=== PATIENT | female | born 1935 | race Caucasian/White ===

== ENCOUNTER 2016-04-24 09:50 | Day surgery (SDC) | payer MEDICARE, OTHER ==
[2016-04-24] MEDS ORDERED: KETOROLAC 0.45% OPHTH DROPS OPTH ONE (10:25)
[2016-04-24] MEDS ORDERED: TROPICAMIDE 1% OPHTH 2 ML DROPS OPTH ONE (10:25)
[2016-04-24] MEDS ORDERED: CYCLOPENTOLATE 1% OPHTH DROPS 2 ML OPTH ONE (10:25)
[2016-04-24] MEDS ORDERED: LACTATED RINGERS 500 ML IV ONE (10:32)
[2016-04-24] MEDS ORDERED: MIDAZOLAM 2 MG/2 ML VIAL IVP ONE (11:44)
[2016-04-24] MEDS ORDERED: BRIMONIDINE 0.2% OPHTH DROPS 5 ML OPTH ONE (11:48)
[2016-04-24] MEDS ORDERED: EPINEPHrine 1 MG/ML AMP IO ONE (11:48)
[2016-04-24] MEDS ORDERED: PROPARACAINE 0.5% OPHTH DROPS 15 ML OPTH ONE (11:48)
[2016-04-24] MEDS ORDERED: TIMOLOL 0.5% OPHTH DROPS OPTH ONE (11:49)
[2016-04-24] MEDS ORDERED: BSS/LIDOCAINE/EPINEPHRINE 1 ML SYRINGE IO ONE (11:49)
[2016-04-24] MEDS ORDERED: levoFLOXacin 0.5% OPHTH DROPS 5 ML OPTH ONE (11:49)
[2016-04-24] MEDS ORDERED: CHONDR SULF/HYALURONATE SYRINGE IO ONE (11:49)
[2016-04-24] MEDS ORDERED: TETRACAINE OPHTH DROPS 2 ML OPTH ONE (11:49)
== END 2016-04-24 09:51 | disposition home or self-care (01) ==
PROC: 08RJ3JZ Replacement of Right Lens with Synthetic Substitute, Percutaneous Approach (ICD-10-PCS; principal; 2016-04-24 11:20)
DX: H25.11 Age-related nuclear cataract, right eye (principal)
CPT/HCPCS: 66982; V2632

== ENCOUNTER 2018-11-13 15:30 | Outpatient (CLI) | payer MEDICARE, OTHER | END 2018-11-13 15:31 | disposition critical access hospital (66) | LOC: EMS 15:30 | PROVIDERS: ATTEND Surgery | DX: M25.551 Pain in right hip (principal); S50.311A Abrasion of right elbow, initial encounter; W01.0XXA Fall on same level from slipping, tripping and stumbling without subsequent striking against object, initial encounter; Y92.009 Unspecified place in unspecified non-institutional (private) residence as the place of occurrence of the external cause | CPT/HCPCS: A0425; A0429 ==

== ENCOUNTER 2018-11-13 16:11 | Inpatient (IN) | payer MEDICARE, OTHER ==
--- NOTE | 2018-11-13 17:25 | XRAY Report ---
Reason: hip fracture suspected Procedure Date: 11/13/2018 Accession Number: [id number] / [id number] Procedure: XR - Hip w/Pelvis 2-3V RT CPT Code: FULL RESULT: EXAM: RIGHT HIP RADIOGRAPHY EXAM DATE: 11/13/2018 05:01 PM. CLINICAL HISTORY: Hip fracture suspected. Right hip pain after a ground-level fall today. COMPARISON: None. TECHNIQUE: 2 views. FINDINGS: Bones: Acute comminuted right proximal femur intertrochanteric fracture with impaction, displacement and varus angulation. Joints: No dislocation. Mild pubic symphysis degenerative change. Minimal left hip degenerative joint disease. Soft Tissues: Bilateral buttock calcified granuloma suspected. IMPRESSION: Acute comminuted right proximal femur intertrochanteric fracture with impaction, displacement and varus angulation. See above. RADIA
--- NOTE | 2018-11-13 17:31 | ED Physician Documentation ---
PD HPI LOWER EXT INJURY - Stated complaint Stated Complaint: GLF - Chief complaint Chief Complaint: Ext Problem - History obtained from History obtained from: Patient - History of Present Illness PD HPI LOW EXT INJURY LOCATION: Right, Hip Type of injury: Fall, Other (from standing, ground level. Twisted around and misstepped) Where injury occurred: Other (yard at home) Timing - onset: Today (just prior to arrival) Timing - duration: Hours (1) Timing - details: Abrupt onset Pain level max: 8 Pain level now: 8 Severity Comments: 11/28 Improved by: Rest, Immobilization Worsened by: Moving Associated symptoms: No: Weakness, Numbness, Tingling, Swelling, Discolored Contributing factors: No: Anticoagulated, Prior ortho surgery, Prosthetic joint, Work related Similar symptoms before: Has not had sx before Recently seen: Not recently seen - Treatment prior to arrival Treatment prior to arrival: none, pt refused medication Review of Systems Ten Systems: 10 systems reviewed and negative Constitutional: denies: Fever Eyes: reports: Reviewed and negative Cardiac: reports: Reviewed and negative Respiratory: reports: Reviewed and negative GI: reports: Reviewed and negative Musculoskeletal: reports: Extremity pain, Joint pain. denies: Extremity swelling, Joint swelling Neurologic: denies: Focal weakness, Numbness, Syncope, Headache, Head injury, LOC PD PAST MEDICAL HISTORY - Past Medical History Past Medical History: No - Present Medications Home Medications: Ambulatory Orders Medication Instructions Recorded Confirmed No Known Home Medications 04/23/16 11/13/18 - Allergies Allergies/Adverse Reactions: Allergies Allergy/AdvReac Type Severity Reaction Status Date / Time Penicillins Allergy Hives Verified 11/13/18 16:22 PD ED PE NORMAL - Vitals Vital signs reviewed: Yes - General General: Alert and oriented X 3, No acute distress, Well developed/nourished - HEENT HEENT: Atraumatic - Neck Neck: Supple, no meningeal sign, No JVD - Cardiac Cardiac: RRR, No murmur, No gallop, No rub - Respiratory Respiratory: No respiratory distress, Clear bilaterally - Abdomen Abdomen: Soft, Non tender, Non distended - Female Female : Deferred - Rectal Rectal: Deferred - Derm Derm: Normal color, Warm and dry, No rash - Neuro Neuro: Alert and oriented X 3 Eye Opening: Spontaneous Motor: Obeys Commands Verbal: Oriented GCS Score: 15 - Psych Psych: Normal mood, Normal affect PD ED PE EXPANDED - Extremities Extremities: Deformity, Tenderness, Limited ROM, Right hip, Motor intact, Sensory intact, Vascular intact, Other (externally rotated, shortened, right lo wer extremity, 2+ DP and PT pulses ) Results - Vitals Vitals: Vital Signs - 24 hr 11/13/18 16:20 Temperature 36.8 C Heart Rate 66 Respiratory 18 Rate Blood Pressure 120/75 O2 Saturation 96 Oxygen O2 Source Room air - EKG (time done) 17:47 Rate: Rate (enter#) Rhythm: NSR Todd: Normal Intervals: LBBB QRS: Normal Ischemia: Normal ST segments Computer interpretation: Agree with computer - Rads (name of study) xray right hip Radiology: Final report received, EMP read contemporaneously (right hip intertrochanteric fracture, comminuted and displaced), See rad report PD MEDICAL DECISION MAKING - ED course Complexity details: reviewed results, re-evaluated patient, considered differe ntial, d/w patient, d/w family, d/w database reporting consultant ED course: ddx- contusion, fracture, hip strain, dislocation, pelvic fracture 83 y/o F with GLF mechanical, nonsyncopal with no head injury. With isolated R hip pain. OBvious comminuted and displaced fx on xray confirmed. Neurovascularly intact. Last meal at 12:00 today. Ortho aware and will likely take to OR tonight. Pt is NPO. Hospitalist agreed to admission. Departure - Departure Disposition: [facility] DC/Xfer Clinical Impression: Intertrochanteric fracture of right hip Qualifiers: Encounter type: initial encounter Fracture type: closed Fracture alignment: displaced Qualified Code(s): S72.141A - Displaced intertrochanteric fracture of right femur, initial encounter for closed fracture
[2018-11-13] MEDS ORDERED: oxyCODONE 5 MG TABLET PO PRN (17:52)
[2018-11-13] MEDS ORDERED: ONDANSETRON ODT 4 MG TABLET TL PRN (17:52)
[2018-11-13] MEDS ORDERED: MORPHINE 2 MG/ML CARPUJECT IVP PRN (17:52)
[2018-11-13] MEDS ORDERED: ONDANSETRON 4 MG/2 ML VIAL IVP PRN (17:52)
[2018-11-13] MEDS ORDERED: SODIUM CHLORIDE FLUSH 0.9% 10 ML SYRINGE IVP PRN (17:52)
[2018-11-13 17:57] LABS: BASOPHILS % (AUTO) 0.3 %; EOSINOPHILS % (AUTO) 0.3 %; HGB - HEMOGLOBIN 12.8 g/dL (12.0-16.0); LYMPHOCYTES # (AUTO) 0.8 10^3/uL (1.5-3.5); LYMPHOCYTES % (AUTO) 6.7 %; MEAN CORPUSCULAR HEMOGLOBIN 32.2 pg (27.0-31.0); MEAN CORPUSCULAR HGB CONC 32.7 g/dL (32.0-36.0); MEAN CORPUSCULAR VOLUME 98.7 fL (81.0-99.0); MEAN PLATELET VOLUME 9.8 fL (7.9-10.8); MONOCYTES # (AUTO) 0.7 10^3/uL (0.0-1.0); MONOCYTES % (AUTO) 5.7 %; NEUTROPHILS # (AUTO) 10.3 10^3/uL (1.5-6.6); NEUTROPHILS % (AUTO) 86.7 %; PLT - PLATELET COUNT 193 10^3/uL (130-450); RED BLOOD COUNT 3.97 10^6/uL (4.20-5.40); RED CELL DISTRIBUTION WIDTH 13.1 % (12.0-15.0); WHITE BLOOD COUNT 11.8 x10^3/uL (4.8-10.8)
[2018-11-13 18:11] LABS: CALCIUM 9.1 mg/dL (8.5-10.3); CREATININE 0.9 mg/dL (0.4-1.0)
--- NOTE | 2018-11-13 18:21 | HISTORY & PHYSICAL EXAMINATION ---
Chief Complaint - Chief Complaint Chief Complaint: fall History of Present Illness - History of Present Illness HPI Comment/Other: is a 83-yrs-old female without significant medical history, who present ER complain of right hip pain. Pt report, when she turned on the right side while she was doing garden work, she had simply fell. She denies loss of consciousness, pre-syncope or syncope, palpitation, chest pain, shortness of breath. she denies other injury. Pt denies medical history, and denies any home medications she takes now. Xray of hip reveals acute comminuted right proximal femur intertrochanteric fracture. EKG reveals left bundle branch block. Pt is hemodynamic stable. Orthopedics was consulted and called, and planned to have surgery hip repair tonight. History - Family & Social History Family History Comment/Other: pt report she is living at [facility] by her own and independently. she had one son and one daughter. Her Daughter is her DPOA Social History Notes: pt denies hx of cigarett smoker, alcohol and drug abuse Meds/Allgy - Home Medications Home Medications: Ambulatory Orders Medication Instructions Recorded Confirmed No Known Home Medications 04/23/16 11/13/18 - Allergies Allergies/Adverse Reactions: Allergies Allergy/AdvReac Type Severity Reaction Status Date / Time Penicillins Allergy Hives Verified 11/13/18 16:22 Review of Systems - Constitutional Constitutional: denies: Fatigue, Fever, Chills, Malaise, Weakness, Poor appetite, Diaphoresis, Night sweats - Eyes Eyes: denies: Pain, Irritation, Amaurosis, Blurred vision, Spots in vision, Field loss, Vision loss, Dipolpia - Ears, Nose & Throat Ears, Nose & Throat: denies: Ear pain, Hearing loss, Hearing aids, Tinnitus, Vertigo, Nasal pain, Nasal discharge, Nosebleeds, Nasal obstruction, Nasal congestion, Postnasal drainage, Dentures, Sore throat, Hoarseness - Cardiovascular Cariovascular: denies: Irregular heart rate, Palpitations, Chest pain, Edema, Lightheadedness, Syncope, Exertional dyspnea, Decr. exercise tolerance - Respiratory Respiratory: denies: Cough, Sputum production, Wheezing, Snoring, Hemoptysis, Orthopnea, SOB at rest, SOB with exertion - Gastrointestinal Gastrointestinal: denies: Abdominal pain, Abdominal distention, Constipation, D iarrhea, Change in bowel habits, Rectal bleeding, Black stools, Bloody stools, Nausea, Vomiting, Bile emesis, Dontrell blood emesis, Coffee grounds emesis - Genitourinary Genitourinary: denies: Dysuria, Frequency, Urgency, Hematuria, Incontinence, Flank pain, Nocturia, Urethral discharge - Musculoskeletal Musculoskeletal: reports: Limited range of motion, Joint pain. denies: Muscle pain, Back pain, Muscle aches, Stiffness, Muscle weakness, Gout, Joint swelling - Integumentary Integumentary: denies: Rash, Pruritis, Lesions, Dryness, Lumps, Acne, Pigment changes, Nail changes - Neurological Neurological: denies: General weakness, Focal weakness, Headache, Dizziness, Numbness, Memory problems, Pre-existing deficit, Abnormal gait, Seizures, Incoordination, Slurred speech - Psychiatric Psychiatric: denies: Depression, Anxiety, Suicidal, Delusions, Hallucinations, Homicidal - Endocrine Endocrine: denies: Polyuria, Polydypsia, Polyphagia, Intolerance to cold - Hematologic/Lymphatic Hematologic/Lymphatic: denies: Anemia, Bruising, Petechiae, Blood clots, Lymphadenopathy, Bleeding tendencies Exam - Vital Signs Reviewed Vital Signs: Yes Vital Signs: Vital Signs x48h Temp Pulse Resp BP Pulse Ox 11/13/18 16:20 36.8 C 66 18 120/75 96 - Physical Exam General Appearance: positive: No acute distress, Alert. negative: Lethargic Eyes Bilateral: positive: Normal inspection, PERRL. negative: No lid inflammation, Conjunctivae nml ENT: positive: ENT inspection nml, Pharynx nml, No signs of dehydration. negative: Purulent nasal drainage, Pharyngeal erythema, Oral lesions Neck: positive: Nml inspection, Thyroid nml, No JVD, Trachea midline. negative: Thyromegaly, Lymphadenopathy (R), Lymphadenopathy (L), Stiff neck, Swelling/bruising, Tracheal deviation Respiratory: positive: Chest non-tender, No respiratory distress, Breath sounds nml. negative: Wheezes, Rales, Rhonchi Cardiovascular: positive: Regular rate & rhythm, No murmur, No gallop. negative: Irregularly irregular, Extrasystoles, Tachycardia, Bradycardia, JVD present, Systolic murmur, Diastolic murmur Peripheral Pulses: positive: 2+ Abdomen: positive: Non-tender, No organomegaly, Nml bowel sounds, No distention. negative: Tenderness, Guarding, Rebound Back: positive: Nml inspection. negative: CVA tenderness (R), CVA tenderness (L) Skin: positive: Color nml, No rash, Warm, Dry. negative: Cyanosis, Diaphoresis, Pallor Extremities: positive: Non-tender, Nml appearance. negative: Full ROM, Calf tenderness, Joint swelling, Basil's sign/cords Neurologic/Psychiatric: positive: Sensation nml, Mood/affect nml. negative: Oriented x3, Weakness, Sensory loss, Facial droop, Slurred/abnml speech, Depre ssed mood/affect Sepsis Event Note (H) - Evaluation Current Stage of Sepsis: Ruled out Conclusion/Plan - Problem List (1) Intertrochanteric fracture of right hip Conclusion/Plan: pt had simple fall, she report pain when she move her right leg. Xray reveals right hip fracture. consult with orthopedics, will followup NPO with IVF of NS pain control Pt has no medical history. Revised Cardiac Risk Index for Pre-Operative Risk indicate 3.9%, low risk. Qualifiers: Encounter type: initial encounter Fracture type: closed Fracture alignment: displaced Qualified Code(s): S72.141A - Displaced intertrochanteric fracture of right femur, initial encounter for closed fracture (2) Fall Conclusion/Plan: pt had a simple fall per pt report. pt denies loss of consciousness, denies pre-syncope/syncope. pt has no cardiac history. fall precaution followup surgery, PT/OT evaluation and treatment for pt (3) Left bundle branch block (LBBB) Conclusion/Plan: pt's EKG reveals LBBB. pt denies palpitation, pre-syncope/syncope, chest pain. pt has no cardiac history. we will check ECHO, followup (4) Do not intubate, cardiopulmonary resuscitation (CPR)-only code status Conclusion/Plan: pt request DNR - Lab Results Fish Bones: 11/13/18 17:32 11/13/18 17:32 Core Measures - Anticipated LOS I expect patient to be DC'd or transferred within 96 hours.: Yes - DVT/VTE - Prophylaxis VTE/DVT Device ordered at admit?: Yes VTE/DVT Prophylaxis med ordered at admit?: Yes
[2018-11-13] MEDS: SODIUM CHLORIDE FLUSH 0.9% 10 ML SYRINGE IVP SCH (19:00)
[2018-11-13] MEDS: SODIUM CHLORIDE 0.9% 1,000 ML IV SCH (19:00)
--- NOTE | 2018-11-13 19:51 | CONSULTATION NOTE ---
Referring Provider Name of Referring Provider:: Dr. Warren Of emergency medicine department Consult Date: 11/13/18 Chief Complaint - Chief Complaint Chief Complaint: Asked to evaluate patient for right hip fracture History of Present Illness - History Obtained From Records Reviewed: Patient and medical record History obtained from: Patient and emergency medicine physician - History of Present Illness HPI Comment/Other: Hailey is an 83-year-old female who is generally active in her usual state of health until in her garden today when she simply fell. She denies loss of consciousness denies any neurovascular or cardiovascular symptoms preceding this. She denies other traumatic complaints at this time. She was unable to ambulate and was brought to the emergency room found to have a right hip fracture. Orthopedics consultation was sought. Patient denies significant medical history and denies taking any medication a regular basis History - Past Medical History Cardiovascular: reports: None Respiratory: reports: None Neuro: reports: None Endocrine/Autoimmune: reports: None GI: reports: None : reports: None Psych: reports: None Musculoskeletal: reports: None Derm: reports: None - Past Surgical History /[employer]: reports: Hysterectomy HEENT: reports: Cataracts, Tonsil/Adenoidectomy Meds/Allgy - Home Medications Home Medications: Ambulatory Orders Medication Instructions Recorded Confirmed No Known Home Medications 04/23/16 11/13/18 - Allergies Allergies/Adverse Reactions: Allergies Allergy/AdvReac Type Severity Reaction Status Date / Time Penicillins Allergy Hives Verified 11/13/18 16:22 Exam - Vital Signs Vital Signs: Vital Signs x48h Temp Pulse Pulse Resp BP BP Pulse Ox 11/13/18 18:31 36.7 C 74 18 116/99 H 98 11/13/18 16:20 36.8 C 66 18 120/75 96 - Physical Exam Comments/Other: Patient well-developed 83-year-old female no acute distress she is cooperative with the exam. Head and neck normocephalic atraumatic. Patient's right lower extremity is shortened and externally rotated. She is able to initiate flexion extension of toes and ankle. Foot ankle leg knee unremarkable nontender. Thigh calf soft nontender. Skin overlying the hip girdle is intact. She is not aggressively moved though notes that she has thigh and groin pain with any hip rotation. Conclusion/Plan - Diagnosis Diagnosis: Right comminuted unstable intertrochanteric/basicervical femur fracture - Plan Plan: Hailey is an 83-year-old female with a right unstable intertrochanteric/basic ervical femur fracture. Discussed the injury with her as well as her daughter Kathrin Mosley on the telephone. We talked about natural history and relevant literature and the potential short and long-term problems with and without surgery. With the patient we talked about potential operative risks including but not limited to infection wound problems nerve or blood vessel injury numbness tingling weakness pain stiffness decreased range of motion decreased strength decreased function worsening of the patient's condition iatrogenic injury blood loss blood clot blood clot embolus positioning complications anesthetic complications including but not limited to major cardiovascular neurovascular complications even . Patient verbalized their understanding above she verbalized her wish to proceed with operative treatment informed consent was given. Patient patient's daughter given preoperative postoperative instructions and expectations. We will await appropriate medical risk stratification and optimization and then proceed with operative intervention. Procedure is right femur open reduction internal fixation/cephalo-medullary nail placement - Lab Results Fish Bones: 11/13/18 17:32 11/13/18 17:32
[2018-11-13 22:39] LABS: TROPONIN I < 0.04 ng/mL (<0.49)
--- NOTE | 2018-11-13 22:52 | XRAY Report ---
Reason: Preop for tomorrow Procedure Date: 11/13/2018 Accession Number: [id number] / [id number] Procedure: XR - Chest 1 View X-Ray CPT Code: 15598 FULL RESULT: EXAM: CHEST RADIOGRAPHY EXAM DATE: 11/13/2018 09:15 PM. CLINICAL HISTORY: Preoperative for hip fracture surgery. COMPARISON: None. TECHNIQUE: 1 view. FINDINGS: Lungs/Pleura: No significant consolidation, effusion, or definite pneumothorax. Mediastinum: Cardiac silhouette is within normal limits when accounting for lung volumes and technique. Other: There is moderate bilateral shoulder degenerative change. IMPRESSION: No acute cardiopulmonary abnormality demonstrated. RADIA
[2018-11-14] MEDS: SODIUM CHLORIDE FLUSH 0.9% 10 ML SYRINGE IVP SCH ×3 (00:35→16:40)
[2018-11-14] MEDS: SODIUM CHLORIDE 0.9% 1,000 ML IV SCH (04:25)
[2018-11-14 06:09] LABS: BASOPHILS % (AUTO) 0.1 %; HGB - HEMOGLOBIN 9.7 g/dL (12.0-16.0); LYMPHOCYTES # (AUTO) 1.2 10^3/uL (1.5-3.5); LYMPHOCYTES % (AUTO) 16.8 %; MEAN CORPUSCULAR HEMOGLOBIN 31.6 pg (27.0-31.0); MEAN CORPUSCULAR HGB CONC 32.2 g/dL (32.0-36.0); MEAN PLATELET VOLUME 9.9 fL (7.9-10.8); MONOCYTES # (AUTO) 0.8 10^3/uL (0.0-1.0); NEUTROPHILS # (AUTO) 5.1 10^3/uL (1.5-6.6); PLT - PLATELET COUNT 172 10^3/uL (130-450); RED BLOOD COUNT 3.07 10^6/uL (4.20-5.40); RED CELL DISTRIBUTION WIDTH 13.3 % (12.0-15.0); WHITE BLOOD COUNT 7.1 x10^3/uL (4.8-10.8)
[2018-11-14 06:20] LABS: ALBUMIN 2.9 g/dL (3.2-5.5); ALBUMIN/GLOBULIN RATIO 1.1 (1.0-2.2); BILIRUBIN,TOTAL 1.1 mg/dL (0.2-1.0); CALCIUM 7.9 mg/dL (8.5-10.3); CREATININE 0.8 mg/dL (0.4-1.0); TOTAL PROTEIN 5.6 g/dL (6.7-8.2)
--- NOTE | 2018-11-14 06:51 | ANESTHESIA ---
Pre-Anesthesia VS, & Labs - Diagnosis Diagnosis Right comminuted unstable intertrochanteric/ basicervical femur fracture - Procedure Right intertrochanter hip nailing Vital Signs: Temp Pulse Resp BP Pulse Ox 37.1 C 67 18 111/58 L 95 11/14/18 04:47 11/14/18 04:47 11/14/18 04:47 11/14/18 00:00 11/14/18 04:47 Height 5 ft Weight (kg) 44 kg Body Mass Index 18.9 - NPO >8 hours - Is Patient ?: No, Not Applicable - Lab Results Current Lab Results: Laboratory Tests 11/14/18 05:39: Sodium 143, Potassium 3.8, Chloride 112 H, Carbon Dioxide 23, Anion Gap 8.0, BUN 16, Creatinine 0.8, Estimated GFR (MDRD) 68 L, Glucose 115 H, Calcium 7.9 L, Magnesium 2.0, Total Bilirubin 1.1 H, AST 22, ALT 14, Alkaline Phosphatase 38 L, Total Protein 5.6 L, Albumin 2.9 L, Globulin 2.7, Albumin/Globulin Ratio 1.1 11/14/18 05:39: WBC 7.1, RBC 3.07 L, Hgb 9.7 L, Hct 30.1 L, MCV 98.0, MCH 31.6 H , MCHC 32.2, RDW 13.3, Plt Count 172, MPV 9.9, Neut # (Auto) 5.1, Lymph # (Auto) 1.2 L, [place] # (Auto) 0.8, Eos # (Auto) 0.0, Baso # (Auto) 0.0, Absolute Nucleated RBC 0.00, Nucleated RBC % 0.0 11/13/18 22:16: Troponin I < 0.04, Troponin I High Sens 4.3 11/13/18 17:32: Sodium 141, Potassium 3.6, Chloride 105, Carbon Dioxide 25, Anion Gap 11.0, BUN 20, Creatinine 0.9, Estimated GFR (MDRD) 60 L, Glucose 125 H , Calcium 9.1 11/13/18 17:32: WBC 11.8 H, RBC 3.97 L, Hgb 12.8, Hct 39.2, MCV 98.7, MCH 32.2 H , MCHC 32.7, RDW 13.1, Plt Count 193, MPV 9.8, Neut # (Auto) 10.3 H, Lymph # (Auto) 0.8 L, [place] # (Auto) 0.7, Eos # (Auto) 0.0, Baso # (Auto) 0.0, Absolute Nucleated RBC 0.00, Nucleated RBC % 0.0 Lab results reviewed: Yes Fish Bones: 11/14/18 05:39 11/14/18 05:39 Home Medications and Allergies Active Medications Acetaminophen (Tylenol) 650 mg PO Q4HR PRN PRN Reason: Pain 1 to 4 Enoxaparin Sodium (Lovenox) 40 mg SUBQ DAILY [facility] Sodium Chloride (Normal Saline 0.9%) 1,000 mls @ 100 mls/hr IV .Q10H [facility] Last Admin: 11/14/18 04:25 Dose: 100 mls/hr Morphine Sulfate (Morphine (Carpuject)) 2 mg IVP Q2HR PRN PRN Reason: Pain 8 to 10 Ondansetron HCl (Zofran Inj) 4 mg IVP Q6HR PRN PRN Reason: Nausea / Vomiting Ondansetron HCl (Zofran Odt) 4 mg TL Q6HR PRN PRN Reason: Nausea / Vomiting Oxycodone HCl (Roxicodone) 5 mg PO Q4HR PRN PRN Reason: Pain 5 to 7 Polyethylene Glycol (Miralax) 17 gm PO DAILY [facility] Sodium Chloride (Normal Saline Flush 0.9%) 10 ml IVP PRN PRN PRN Reason: NEEDED PER PROVIDER ORDERS Sodium Chloride (Normal Saline Flush 0.9%) 10 ml IVP 0100,0900,1700 [facility] Last Admin: 11/14/18 00:35 Dose: Not Given No Known Home Medications 04/23/16 Allergies/Adverse Reactions: Allergies Allergy/AdvReac Type Severity Reaction Status Date / Time Penicillins Allergy Hives Verified 11/13/18 16:22 Anes History & Medical History - Anesthetic History Anesthesia Complications: reports: No previous complications Family history of Anesthesia Complications: Denies Family history of Malignant Hyperthermia: Denies - Medical History Cardiovascular: reports: None Pulmonary: reports: None Gastrointestinal: reports: None Urinary: reports: None Neuro: reports: None Musculoskeletal: reports: None Endocrine/Autoimmune: reports: None Blood Disorders: reports: None Skin: reports: None Smoking Status: Never smoker Psychosocial: reports: No issues indicated - Surgical History Eyes Ears Nose Throat (EENT): Cataracts, Tonsil/Adenoidectomy Gynecologic: Hysterectomy Exam General: Alert, Oriented x3, Cooperative Mouth Opening: Greater than 4 Fingerbreadths Neck Mobility: Normal Mallampati classification: II Thyromental Distance: 4-6 cm Respiratory: Lungs clear Cardiovascular: Regular rate Neurological: Normal speech Mental/Cognitive Status: Alert/Oriented X3 Cognitive Status: Within normal limits Plan Anesthesia Type: General Consent for Procedure(s) Verified and Reviewed: Yes Code Status: Attempt Resuscitation ASA classification: 1-Healthy patient Is this case an emergency?: Yes
[2018-11-14] MEDS: POLYETHYLENE GLYCOL 3350 17 GM PACKET PO SCH (08:04)
[2018-11-14] MEDS ORDERED: SODIUM CHLORIDE 0.9% 1,000 ML IV SCH (08:09)
--- NOTE | 2018-11-14 08:15 | PROVIDER PROGRESS NOTE ---
Objective - Vital Signs/Intake & Output Vital Signs: Vital Signs x48h Temp Pulse Pulse Resp BP Pulse Ox 11/14/18 07:31 37.2 C 76 16 114/60 96 11/14/18 04:47 37.1 C 67 18 95 Intake & Output: Intake & Output 11/11/18 11/12/18 11/13/18 11/14/18 23:59 23:59 23:59 23:59 Intake Total 0 941.667 Output Total 50 Balance 0 891.667 - Lab Results Fish Bones: 11/14/18 05:39 11/14/18 05:39 Other Labs: Lab Results x24hrs 11/14/18 11/14/18 11/13/18 Range/Units 05:39 05:39 22:16 WBC 7.1 (4.8-10.8) x10^3/uL RBC 3.07 L (4.20-5.40) 10^6/uL Hgb 9.7 L (12.0-16.0) g/dL Hct 30.1 L (37.0-47.0) % MCV 98.0 (81.0-99.0) fL MCH 31.6 H (27.0-31.0) pg MCHC 32.2 (32.0-36.0) g/dL RDW 13.3 (12.0-15.0) % Plt Count 172 (130-450) 10^3/uL MPV 9.9 (7.9-10.8) fL Neut # (Auto) 5.1 (1.5-6.6) 10^3/uL Lymph # (Auto) 1.2 L (1.5-3.5) 10^3/uL [place] # (Auto) 0.8 (0.0-1.0) 10^3/uL Eos # (Auto) 0.0 (0.0-0.7) 10^3/uL Baso # (Auto) 0.0 (0.0-0.1) 10^3/uL Absolute Nucleated RBC 0.00 x10^3/uL Nucleated RBC % 0.0 /100WBC Sodium 143 (135-145) mmol/L Potassium 3.8 (3.5-5.0) mmol/L Chloride 112 H (101-111) mmol/L Carbon Dioxide 23 (21-32) mmol/L Anion Gap 8.0 (6-13) BUN 16 (6-20) mg/dL Creatinine 0.8 (0.4-1.0) mg/dL Estimated GFR (MDRD) 68 L (>89) Glucose 115 H (70-100) mg/dL Calcium 7.9 L (8.5-10.3) mg/dL Magnesium 2.0 (1.7-2.8) mg/dL Total Bilirubin 1.1 H (0.2-1.0) mg/dL AST 22 (10-42) IU/L ALT 14 (10-60) IU/L Alkaline Phosphatase 38 L (42-121) IU/L Troponin I < 0.04 (<0.49) ng/mL Troponin I High Sens 4.3 (2.3-14.8) pg/mL Total Protein 5.6 L (6.7-8.2) g/dL Albumin 2.9 L (3.2-5.5) g/dL Globulin 2.7 (2.1-4.2) g/dL Albumin/Globulin Ratio 1.1 (1.0-2.2) 11/13/18 11/13/18 Range/Units 17:32 17:32 WBC 11.8 H (4.8-10.8) x10^3/uL RBC 3.97 L (4.20-5.40) 10^6/uL Hgb 12.8 (12.0-16.0) g/dL Hct 39.2 (37.0-47.0) % MCV 98.7 (81.0-99.0) fL MCH 32.2 H (27.0-31.0) pg MCHC 32.7 (32.0-36.0) g/dL RDW 13.1 (12.0-15.0) % Plt Count 193 (130-450) 10^3/uL MPV 9.8 (7.9-10.8) fL Neut # (Auto) 10.3 H (1.5-6.6) 10^3/uL Lymph # (Auto) 0.8 L (1.5-3.5) 10^3/uL [place] # (Auto) 0.7 (0.0-1.0) 10^3/uL Eos # (Auto) 0.0 (0.0-0.7) 10^3/uL Baso # (Auto) 0.0 (0.0-0.1) 10^3/uL Absolute Nucleated RBC 0.00 x10^3/uL Nucleated RBC % 0.0 /100WBC Sodium 141 (135-145) mmol/L Potassium 3.6 (3.5-5.0) mmol/L Chloride 105 (101-111) mmol/L Carbon Dioxide 25 (21-32) mmol/L Anion Gap 11.0 (6-13) BUN 20 (6-20) mg/dL Creatinine 0.9 (0.4-1.0) mg/dL Estimated GFR (MDRD) 60 L (>89) Glucose 125 H (70-100) mg/dL Calcium 9.1 (8.5-10.3) mg/dL Magnesium (1.7-2.8) mg/dL Total Bilirubin (0.2-1.0) mg/dL AST (10-42) IU/L ALT (10-60) IU/L Alkaline Phosphatase (42-121) IU/L Troponin I (<0.49) ng/mL Troponin I High Sens (2.3-14.8) pg/mL Total Protein (6.7-8.2) g/dL Albumin (3.2-5.5) g/dL Globulin (2.1-4.2) g/dL Albumin/Globulin Ratio (1.0-2.2) Sepsis Event Note (H) - Evaluation Current Stage of Sepsis: Ruled out Assessment/Plan - Problem List (1) Intertrochanteric fracture of right hip Impression: Patient seen and examined this a.m. 11/14/2018. Procedure again briefly reviewed. Questions answered. No significant interval change. Plan to proceed with the aforementioned procedure right femur cephalo-medullary nail/open reduction internal fixation. Patient identifies right hip and femur as operative site this is signed. Qualifiers: Encounter type: initial encounter Fracture type: closed Fracture alignment: displaced Qualified Code(s): S72.141A - Displaced intertrochanteric fracture of right femur, initial encounter for closed fracture
[2018-11-14] MEDS ORDERED: SODIUM CHLORIDE 0.9% 1,000 ML IV ONE ×2 (08:25→09:18)
[2018-11-14 08:40] LABS: BILIRUBIN,URINE NEGATIVE (NEGATIVE); GLUCOSE, URINE (UA) NEGATIVE (NEGATIVE); KETONES,URINE (UA) 15 mg/dL (NEGATIVE); LEUKOCYTE ESTERASE, URINE NEGATIVE (NEGATIVE); NITRITE,URINE NEGATIVE (NEGATIVE); OCCULT BLOOD,URINE SMALL (NEGATIVE); PH,URINE 5.5 PH (5.0-7.5); PROTEIN,URINE NEGATIVE (NEGATIVE); UROBILINOGEN,URINE 0.2 (NORMAL) E.U./dL (NORMAL)
[2018-11-14 08:43] LABS: CLARITY,URINE HAZY (CLEAR)
[2018-11-14 08:47] LABS: AMORPHOUS SEDIMENT,UR Few /LPF; BACTERIA,URINE Few /HPF (None Seen); RBC,URINE 0-5 /HPF (0-5); SQUAMOUS EPITHELIAL CELL,UR FEW Squamous (<= Few)
[2018-11-14] MEDS ORDERED: LACTATED RINGERS 1,000 ML IV ONE (10:53)
[2018-11-14] MEDS ORDERED: ACETAMINOPHEN 1,000 MG/100 ML 100 ML IV PRN (10:56)
[2018-11-14] MEDS ORDERED: SODIUM CHLORIDE FLUSH 0.9% 10 ML SYRINGE IVP PRN (10:56)
[2018-11-14] MEDS ORDERED: ACETAMINOPHEN 325 MG TABLET PO PRN (10:56)
[2018-11-14] MEDS ORDERED: PROCHLORPERAZINE 10 MG/2 ML VIAL IVP PRN (10:56)
[2018-11-14] MEDS ORDERED: DOCUSATE SODIUM 100 MG CAPSULE PO PRN (10:56)
--- NOTE | 2018-11-14 11:02 | IMMEDIATE POSTOPERATIVE NOTE ---
Immediate Postoperative Note - Procedure Note Procedure Date: 11/14/18 Pre-Op Diagnosis: Right intertrochanteric hip fracture Procedure: Right femur cephalo-medullary nail placement Post-Op Diagnosis: Same Primary Surgeon: Shelley Workman MD [facility] Nurse Practitioner: GENO Anesthesia Type: General LMA Findings: Comminuted unstable intertrochanteric fracture/basicervical fracture right Complications: No complications Estimated Blood Loss (in cc): 50 Specimens and Cultures: NA Plan of Care: Right intertrochanteric/basicervical hip fracture femur fracture. Underwent operative fixation. Perioperative antibiotics, DVT prophylaxis mechanical and chemical, analgesics. Return to medical service with close orthopedic management. Touchdown weightbearing right lower extremity with assistance and assistive device as necessary. Physical therapy, occupational therapy, social work for custodial facility placement. Right intertrochanteric/basicervical hip fracture femur fracture. Underwent operative fixation. Perioperative antibiotics, DVT prophylaxis mechanical and chemical, analgesics. Return to medical service with close orthopedic management. Touchdown weightbearing right lower extremity with assistance and assistive device as necessary. Physical therapy, occupational therapy, social work for custodial facility placement.
--- NOTE | 2018-11-14 11:54 | XRAY Report ---
Reason: RIGHT HIP FRACTURE Procedure Date: 11/14/2018 Accession Number: [id number] / [id number] Procedure: XR - Hip w/Pelvis 1V RT CPT Code: FULL RESULT: EXAM: FLUOROSCOPIC GUIDANCE EXAM DATE: 11/14/2018 10:43 AM. CLINICAL HISTORY: Right hip fracture, right hip nailing. COMPARISON: None. IMPRESSION: Fluoroscopic guidance provided for orthopedic guidance right hip ORIF. Total fluoroscopy time: Not recorded. Number of images: 8. RADIA
[2018-11-14] MEDS: ACETAMINOPHEN 325 MG TABLET PO PRN (12:59)
[2018-11-14] MEDS: ENOXAPARIN 40 MG/0.4 ML SYRINGE SUBQ SCH (13:05)
--- NOTE | 2018-11-14 13:08 | OPERATIVE REPORT ---
DATE OF SERVICE: 11/14/2018 Physician: Carrillo Rosa MD SURGEON: Carrillo Rosa MD STONER OUT: None. ANESTHESIOLOGIST: Isiah Salazar MD ANESTHESIA: General LMA. FLUIDS: 1000 mL lactated Ringer's. ESTIMATED BLOOD LOSS: Less than 50 mL. PREOPERATIVE ANTIBIOTICS: 2 grams weight-based IV Ancef. PREOPERATIVE DIAGNOSIS: Right intertrochanteric/basicervical comminuted unstable femur fracture. POSTOPERATIVE DIAGNOSIS: Right intertrochanteric/basicervical comminuted unstable femur fracture. PROCEDURE: Right femur cephalomedullary nail placement. INTRAOPERATIVE COMPLICATIONS: None noted. INTRAOPERATIVE FINDINGS: Comminuted intertrochanteric fracture, unstable pattern. There is approxim ate re-creation of length, alignment and rotation within 1 cm and 5 degrees. HISTORY OF PRESENT ILLNESS AND INDICATIONS: Patient is an 83-year-old female who sustained a complex right femur fracture. Please see previous consultation for further details regarding risks, benefit s, alternatives discussion. Discussed with patient and patient's daughter, Kathrin, risks, benefits, a lternatives and highlighted as again preoperatively. They both verbalized their wish to proceed with operative treatment. PROCEDURE: On 11/14/2018, patient was identified in her hospital room. She identifies the right hip as the operative site. This was signed. Patient received preoperative weight-based IV antibiotics. She was brought to the operating room. General anesthesia was administered, then she was carefully placed on the fracture table. Head, neck and extremities placed in anatomically comfortable and saf e position to avoid peripheral nerve stretch and compression. Patient's contralateral left lower ext remity was placed in a safe zone of maximal abduction, hip flexion and internal rotation. Placed in a gel-padded leg rest with an SCD boot. Patient's right lower extremity was placed in a well-padded foot rest with appropriate reduction maneuver performed to maximize reduction of the intertrochanteri c fracture. At this point, patient had pre-scrub of the right thigh and right hip region. Then, she was prepped and draped in the usual sterile fashion using shower curtain device. At this time, surgical pause id entified right intertrochanteric region as the operative site. At this point, marking was made using fluoroscopic guidance to estimate appropriate starting point. A small stab incision made. Guidepin was brought to the comminuted tip of the greater trochanter, down into the shaft, followed by slight ly larger incision and soft tissue protecting using a 1-step reamer. This was followed by placement of a ball-tipped guidewire down to the knee. It was confirmed to be intraosseous on all views. Arlyn uring device was used and initially measured somewhat short. As such, a larger implant, 34 mm, was u ltimately selected. At this point, reaming was performed sequentially to a 13 mm, which had noyi fallon montgomery. At this point, the final 34 length x 11.5 mm 125-degree femoral nail was placed, seated to the appropriate depth. Then an additional incision made laterally, such that the trocar for the head screw was placed up against the bone. Though planning for a derotational screw, this was found not to be necessary. Guidepin was brought to approximately within a centimeter of the apex, measured on both views. This was reamed appropriately and error ed on the slightly posterior-inferior calcar region direction. At this point, the final lag screw was placed, seated such that the tip apex dist ance was less than 25. The locking nut was placed from the top of the screw to control rotation and then loosened one-quarter turn. At this point, the traction was removed from the right lower extremi ty, and then the compression on the screwdriver was used to compress across the fracture site. At th is point, fluoroscopic images are used to confirm this. The guide was removed and then the right low er extremity was abducted for a "perfect [place]" technique to place a distal locking bolt in a dynami c position. At this point, a small stab incision was made at the appropriate site, and then a drill was used to p lace a drill hole across the femur from lateral to medial. This was measured and then a derotational locking bolt was placed distally. It goes into the second cortex, but not beyond. At this point, final images were obtained in all directions including AP and lateral of all portions of the femur, noting appropriate fracture reduction and hardware placement. At this point, the wounds were copiously irrigated, hemostasis achieved and then interrupted Vicryl u sed for subcuticular closure, followed by skin closure and then ez were used for final skin clos ure. Skin was washed and dried. Silver dressing was applied on all wounds. Patient tolerated the procedure well. Instrument and sponge counts were correct. Patient was ultima tely transferred gently off of the fracture table, leg length, alignment and rotation assessed. Plea se see operative findings. Patient was transferred to the recovery room in stable condition. Patient's daughter, CHAPO Pinon, was contacted in her room. The case was discussed. Postoperative delmy ns were reviewed. Questions answered. She verbalized understanding and satisfaction with plan as ou tlined. Patient will return to the medical service with close orthopedic management. She will be on perioper ative DVT prophylaxis, analgesics, antibiotics for 24 hours. She would be toe-touch weightbearing ri ght lower extremity with assistance and assistive device as necessary. She will have physical therap y, occupational therapy and social work for group home facility placement. TD: 11/14/2018 11:46
--- NOTE | 2018-11-14 13:50 | XRAY Report ---
Reason: RIGHT HIP FRACTURE Procedure Date: 11/14/2018 Accession Number: [id number] / [id number] Procedure: [place] - OR C-Arm Procedure CPT Code: FULL RESULT: EXAM: FLUOROSCOPIC GUIDANCE EXAM DATE: 11/14/2018 10:42 AM. CLINICAL HISTORY: RIGHT HIP FRACTURE. COMPARISON: RT HIP NAILING 11/14/2018 7:27 AM. FINDINGS IMPRESSION: C-arm services provided for Dr. Carrillo Rosa during an intraoperative ORIF, right hip fracture. Reference surgical report for more detailed information. Total fluoroscopy time: 1.01 minutes. Number of images: 8. RADIA
[2018-11-14 15:00] LABS: INR 1.2 (0.8-1.2); PT - PROTHROMBIN TIME 12.9 secs (9.9-12.6)
--- NOTE | 2018-11-14 15:42 | PROVIDER PROGRESS NOTE ---
Subjective - Prog Note Date Prog Note Date: 11/14/18 - Subjective Pt reports feeling: Improved Subjective: pt is status post to have the procedure of right femur cephalo-medullary nail/open reduction internal fixation in the morning. pt is comfortably eating her lunch. Current Medications - Current Medications Current Medications: Active Medications Acetaminophen (Tylenol) 650 mg PO Q4HR PRN PRN Reason: Pain 1 to 4 Last Admin: 11/14/18 12:59 Dose: 650 mg Acetaminophen (Tylenol) 650 - 975 mg PO Q4HR PRN PRN Reason: PAIN Aspirin (Pia) 325 mg PO BIDWM [facility] Docusate Sodium (Colace 100mg Capsule) 100 mg PO BID PRN PRN Reason: Constipation Enoxaparin Sodium (Lovenox) 40 mg SUBQ DAILY [facility] Last Admin: 11/14/18 13:05 Dose: 40 mg Sodium Chloride (Normal Saline 0.9%) 1,000 mls @ 83.3 mls/hr IV .Q12H1M [facility] Last Admin: 11/14/18 13:05 Dose: 83.3 mls/hr Cefazolin Sodium 2 gm/ Sodium (Chloride) 100 mls @ 200 mls/hr IV Q8H [facility] Stop: 11/15/18 01:29 Acetaminophen (Ofirmev) 100 mls @ 400 mls/hr IV Q6HR PRN PRN Reason: PAIN Morphine Sulfate (Morphine (Carpuject)) 2 mg IVP Q2HR PRN PRN Reason: Pain 8 to 10 Ondansetron HCl (Zofran Inj) 4 mg IVP Q6HR PRN PRN Reason: Nausea / Vomiting Ondansetron HCl (Zofran Odt) 4 mg TL Q6HR PRN PRN Reason: Nausea / Vomiting Oxycodone HCl (Roxicodone) 5 mg PO Q4HR PRN PRN Reason: Pain 5 to 7 Polyethylene Glycol (Miralax) 17 gm PO DAILY [facility] Last Admin: 11/14/18 08:04 Dose: Not Given Prochlorperazine Edisylate (Compazine Inj) 10 mg IVP Q6HR PRN PRN Reason: Nausea / Vomiting Sodium Chloride (Normal Saline Flush 0.9%) 10 ml IVP PRN PRN PRN Reason: NEEDED PER PROVIDER ORDERS Sodium Chloride (Normal Saline Flush 0.9%) 10 ml IVP 0100,0900,1700 [facility] Last Admin: 11/14/18 12:53 Dose: Not Given No Known Home Medications 04/23/16 Objective - Vital Signs/Intake & Output Reviewed Vital Signs: Yes Vital Signs: Vital Signs x48h Temp Pulse Pulse Resp BP BP Pulse Ox 11/14/18 13:50 36.8 C 74 16 95/44 L 98 11/14/18 12:29 36.7 C 63 16 108/53 L 99 11/14/18 11:31 36.3 C L 85 16 110/47 L 98 11/14/18 11:15 87 16 113/55 L 98 11/14/18 11:00 88 15 114/59 L 98 11/14/18 10:55 36.1 C L 84 16 124/61 100 11/14/18 10:50 36.0 C L 81 14 121/60 100 Intake & Output: Intake & Output 11/11/18 11/12/18 11/13/18 11/14/18 23:59 23:59 23:59 23:59 Intake Total 0 941.667 Output Total 300 Balance 0 641.667 - Objective General Appearance: positive: No acute distress, Alert. negative: Lethargic Eyes Bilateral: positive: Normal inspection, PERRL, No lid inflammation, Conjunctivae nml ENT: positive: ENT inspection nml, Pharynx nml, No signs of dehydration. negative: Purulent nasal drainage, Pharyngeal erythema, Oral lesions Neck: positive: Nml inspection, Thyroid nml, No JVD, Trachea midline. negative: Thyromegaly, Lymphadenopathy (R), Lymphadenopathy (L), Stiff neck, Swelling/bruising, Tracheal deviation Respiratory: positive: Chest non-tender, No respiratory distress, Breath sounds nml. negative: Wheezes, Rales, Rhonchi Cardiovascular: positive: Regular rate & rhythm, No murmur, No gallop. negative: Irregularly irregular, Extrasystoles, Tachycardia, Bradycardia, JVD present, Systolic murmur, Diastolic murmur Peripheral Pulses: 2+ Radial (R), 2+ Radial (L), 2+ Dorsalis pedis (R), 2+ Dorsalis pedis (L) Abdomen: positive: Non-tender, No organomegaly, Nml bowel sounds, No distention. negative: Tenderness, Guarding, Rebound Back: positive: Nml inspection. negative: CVA tenderness (R), CVA tenderness (L) Skin: positive: Color nml, No rash, Warm, Dry. negative: Cyanosis, Diaphoresis, Pallor Extremities: negative: Calf tenderness, Joint swelling, Basil's sign/cords Neurologic/Psychiatric: positive: Oriented x3, Sensation nml, Mood/affect nml. negative: Weakness, Sensory loss, Facial droop, Slurred/abnml speech, Depressed mood/affect - Lab Results Fish Bones: 11/14/18 05:39 11/14/18 05:39 Other Labs: Lab Results x24hrs 11/14/18 11/14/18 11/14/18 Range/Units 14:45 08:25 05:39 WBC (4.8-10.8) x10^3/uL RBC (4.20-5.40) 10^6/uL Hgb (12.0-16.0) g/dL Hct (37.0-47.0) % MCV (81.0-99.0) fL MCH (27.0-31.0) pg MCHC (32.0-36.0) g/dL RDW (12.0-15.0) % Plt Count (130-450) 10^3/uL MPV (7.9-10.8) fL Neut # (Auto) (1.5-6.6) 10^3/uL Lymph # (Auto) (1.5-3.5) 10^3/uL [place] # (Auto) (0.0-1.0) 10^3/uL Eos # (Auto) (0.0-0.7) 10^3/uL Baso # (Auto) (0.0-0.1) 10^3/uL Absolute Nucleated RBC x10^3/uL Nucleated RBC % /100WBC PT 12.9 H (9.9-12.6) secs INR 1.2 (0.8-1.2) Sodium 143 (135-145) mmol/L Potassium 3.8 (3.5-5.0) mmol/L Chloride 112 H (101-111) mmol/L Carbon Dioxide 23 (21-32) mmol/L Anion Gap 8.0 (6-13) BUN 16 (6-20) mg/dL Creatinine 0.8 (0.4-1.0) mg/dL Estimated GFR (MDRD) 68 L (>89) Glucose 115 H (70-100) mg/dL Calcium 7.9 L (8.5-10.3) mg/dL Magnesium 2.0 (1.7-2.8) mg/dL Total Bilirubin 1.1 H (0.2-1.0) mg/dL AST 22 (10-42) IU/L ALT 14 (10-60) IU/L Alkaline Phosphatase 38 L (42-121) IU/L Troponin I (<0.49) ng/mL Troponin I High Sens (2.3-14.8) pg/mL Total Protein 5.6 L (6.7-8.2) g/dL Albumin 2.9 L (3.2-5.5) g/dL Globulin 2.7 (2.1-4.2) g/dL Albumin/Globulin Ratio 1.1 (1.0-2.2) Urine Color YELLOW Urine Clarity HAZY (CLEAR) Urine pH 5.5 (5.0-7.5) PH Ur Specific [place] >=1.030 H (1.002-1.030) Urine Protein NEGATIVE (NEGATIVE) mg/dL Urine Glucose (UA) NEGATIVE (NEGATIVE) mg/dL Urine Ketones 15 H (NEGATIVE) mg/dL Urine Occult Blood SMALL H (NEGATIVE) Urine Nitrite NEGATIVE (NEGATIVE) Urine Bilirubin NEGATIVE (NEGATIVE) Urine Urobilinogen 0.2 (NORMAL) (NORMAL) E.U./dL Ur Leukocyte Esterase NEGATIVE (NEGATIVE) Urine RBC 0-5 (0-5) /HPF Urine WBC 0-3 (0-5) /HPF Ur Squamous Epith Cells FEW Squamous (<= Few) Amorphous Sediment Few /LPF Urine Bacteria Few (None Seen) /HPF Urine Culture Comments NOT INDICATED 11/14/18 11/13/18 11/13/18 Range/Units 05:39 22:16 17:32 WBC 7.1 (4.8-10.8) x10^3/uL RBC 3.07 L (4.20-5.40) 10^6/uL Hgb 9.7 L (12.0-16.0) g/dL Hct 30.1 L (37.0-47.0) % MCV 98.0 (81.0-99.0) fL MCH 31.6 H (27.0-31.0) pg MCHC 32.2 (32.0-36.0) g/dL RDW 13.3 (12.0-15.0) % Plt Count 172 (130-450) 10^3/uL MPV 9.9 (7.9-10.8) fL Neut # (Auto) 5.1 (1.5-6.6) 10^3/uL Lymph # (Auto) 1.2 L (1.5-3.5) 10^3/uL [place] # (Auto) 0.8 (0.0-1.0) 10^3/uL Eos # (Auto) 0.0 (0.0-0.7) 10^3/uL Baso # (Auto) 0.0 (0.0-0.1) 10^3/uL Absolute Nucleated RBC 0.00 x10^3/uL Nucleated RBC % 0.0 /100WBC PT (9.9-12.6) secs INR (0.8-1.2) Sodium 141 (135-145) mmol/L Potassium 3.6 (3.5-5.0) mmol/L Chloride 105 (101-111) mmol/L Carbon Dioxide 25 (21-32) mmol/L Anion Gap 11.0 (6-13) BUN 20 (6-20) mg/dL Creatinine 0.9 (0.4-1.0) mg/dL Estimated GFR (MDRD) 60 L (>89) Glucose 125 H (70-100) mg/dL Calcium 9.1 (8.5-10.3) mg/dL Magnesium (1.7-2.8) mg/dL Total Bilirubin (0.2-1.0) mg/dL AST (10-42) IU/L ALT (10-60) IU/L Alkaline Phosphatase (42-121) IU/L Troponin I < 0.04 (<0.49) ng/mL Troponin I High Sens 4.3 (2.3-14.8) pg/mL Total Protein (6.7-8.2) g/dL Albumin (3.2-5.5) g/dL Globulin (2.1-4.2) g/dL Albumin/Globulin Ratio (1.0-2.2) Urine Color Urine Clarity (CLEAR) Urine pH (5.0-7.5) PH Ur Specific [place] (1.002-1.030) Urine Protein (NEGATIVE) mg/dL Urine Glucose (UA) (NEGATIVE) mg/dL Urine Ketones (NEGATIVE) mg/dL Urine Occult Blood (NEGATIVE) Urine Nitrite (NEGATIVE) Urine Bilirubin (NEGATIVE) Urine Urobilinogen (NORMAL) E.U./dL Ur Leukocyte Esterase (NEGATIVE) Urine RBC (0-5) /HPF Urine WBC (0-5) /HPF Ur Squamous Epith Cells (<= Few) Amorphous Sediment /LPF Urine Bacteria (None Seen) /HPF Urine Culture Comments 11/13/18 Range/Units 17:32 WBC 11.8 H (4.8-10.8) x10^3/uL RBC 3.97 L (4.20-5.40) 10^6/uL Hgb 12.8 (12.0-16.0) g/dL Hct 39.2 (37.0-47.0) % MCV 98.7 (81.0-99.0) fL MCH 32.2 H (27.0-31.0) pg MCHC 32.7 (32.0-36.0) g/dL RDW 13.1 (12.0-15.0) % Plt Count 193 (130-450) 10^3/uL MPV 9.8 (7.9-10.8) fL Neut # (Auto) 10.3 H (1.5-6.6) 10^3/uL Lymph # (Auto) 0.8 L (1.5-3.5) 10^3/uL [place] # (Auto) 0.7 (0.0-1.0) 10^3/uL Eos # (Auto) 0.0 (0.0-0.7) 10^3/uL Baso # (Auto) 0.0 (0.0-0.1) 10^3/uL Absolute Nucleated RBC 0.00 x10^3/uL Nucleated RBC % 0.0 /100WBC PT (9.9-12.6) secs INR (0.8-1.2) Sodium (135-145) mmol/L Potassium (3.5-5.0) mmol/L Chloride (101-111) mmol/L Carbon Dioxide (21-32) mmol/L Anion Gap (6-13) BUN (6-20) mg/dL Creatinine (0.4-1.0) mg/dL Estimated GFR (MDRD) (>89) Glucose (70-100) mg/dL Calcium (8.5-10.3) mg/dL Magnesium (1.7-2.8) mg/dL Total Bilirubin (0.2-1.0) mg/dL AST (10-42) IU/L ALT (10-60) IU/L Alkaline Phosphatase (42-121) IU/L Troponin I (<0.49) ng/mL Troponin I High Sens (2.3-14.8) pg/mL Total Protein (6.7-8.2) g/dL Albumin (3.2-5.5) g/dL Globulin (2.1-4.2) g/dL Albumin/Globulin Ratio (1.0-2.2) Urine Color Urine Clarity (CLEAR) Urine pH (5.0-7.5) PH Ur Specific [place] (1.002-1.030) Urine Protein (NEGATIVE) mg/dL Urine Glucose (UA) (NEGATIVE) mg/dL Urine Ketones (NEGATIVE) mg/dL Urine Occult Blood (NEGATIVE) Urine Nitrite (NEGATIVE) Urine Bilirubin (NEGATIVE) Urine Urobilinogen (NORMAL) E.U./dL Ur Leukocyte Esterase (NEGATIVE) Urine RBC (0-5) /HPF Urine WBC (0-5) /HPF Ur Squamous Epith Cells (<= Few) Amorphous Sediment /LPF Urine Bacteria (None Seen) /HPF Urine Culture Comments ABX Reporting Has patient been on IV antibiotics over the past 48 hours?: No Sepsis Event Note (H) - Evaluation Current Stage of Sepsis: Ruled out Assessment/Plan - Problem List (1) Intertrochanteric fracture of right hip Impression: 11/14 pt is status post of surgery on today morning. will followup orthopedics surgeon consult, DVT prophylaxis per surgeon continue PT/OT continue pain control consult with social work for d/c plan pt had simple fall, she report pain when she move her right leg. Xray reveals right hip fracture. consult with orthopedics, will followup NPO with IVF of NS pain control Pt has no medical history. Revised Cardiac Risk Index for Pre-Operative Risk indicate 3.9%, low risk. Qualifiers: Encounter type: initial encounter Fracture type: closed Fracture alignment: displaced Qualified Code(s): S72.141A - Displaced intertrochanteric fracture of right femur, initial encounter for closed fracture (2) Fall Conclusion/Plan: 11/14 continue fall precaution, continue PT/OT evaluation and treatment, followup osteoporosis protocol pt had a simple fall per pt report. pt denies loss of consciousness, denies pre- syncope/syncope. pt has no cardiac history. fall precaution followup surgery, PT/OT evaluation and treatment for pt (3) Left bundle branch block (LBBB) Conclusion/Plan: 11/14, pt's ECHO is unremarkable. pt might be one of asymptomatic and heart structure normal individual with LBBB pt's EKG reveals LBBB. pt denies palpitation, pre-syncope/syncope, chest pain. pt has no cardiac history. we will check ECHO, followup (4) Do not intubate, cardiopulmonary resuscitation (CPR)-only code status Conclusion/Plan: pt request DNR Qualifiers: Encounter type: initial encounter Fracture type: closed Fracture alignment: displaced Qualified Code(s): S72.141A - Displaced intertrochanteric fracture of right femur, initial encounter for closed fracture
[2018-11-14] MEDS: ceFAZolin 2 GM in SODIUM CHLORIDE 0.9% 100ML 100 ML IV SCH (16:39)
[2018-11-14] MEDS: ASPIRIN 325 MG TABLET PO SCH (16:40)
[2018-11-14] MEDS ORDERED: SODIUM CHLORIDE FLUSH 0.9% 10 ML SYRINGE IVP SCH (17:00)
[2018-11-15] MEDS: ceFAZolin 2 GM in SODIUM CHLORIDE 0.9% 100ML 100 ML IV SCH (01:04)
[2018-11-15] MEDS: SODIUM CHLORIDE 0.45% 1,000 ML IV SCH (01:04)
[2018-11-15] MEDS: SODIUM CHLORIDE FLUSH 0.9% 10 ML SYRINGE IVP SCH ×3 (01:12→16:43)
[2018-11-15 06:13] LABS: BASOPHILS % (AUTO) 0.3 %; EOSINOPHILS % (AUTO) 0.3 %; LYMPHOCYTES # (AUTO) 1.5 10^3/uL (1.5-3.5); LYMPHOCYTES % (AUTO) 21.5 %; MEAN CORPUSCULAR HEMOGLOBIN 32.3 pg (27.0-31.0); MEAN PLATELET VOLUME 10.6 fL (7.9-10.8); MONOCYTES % (AUTO) 14.4 %; NEUTROPHILS # (AUTO) 4.4 10^3/uL (1.5-6.6); NEUTROPHILS % (AUTO) 63.4 %; PLT - PLATELET COUNT 125 10^3/uL (130-450); RED BLOOD COUNT 1.95 10^6/uL (4.20-5.40); RED CELL DISTRIBUTION WIDTH 13.6 % (12.0-15.0); WHITE BLOOD COUNT 6.9 x10^3/uL (4.8-10.8)
[2018-11-15 06:20] LABS: ALBUMIN 2.4 g/dL (3.2-5.5); ALBUMIN/GLOBULIN RATIO 1.2 (1.0-2.2); BILIRUBIN,TOTAL 0.5 mg/dL (0.2-1.0); CALCIUM 7.4 mg/dL (8.5-10.3); CREATININE 0.7 mg/dL (0.4-1.0); TOTAL PROTEIN 4.4 g/dL (6.7-8.2)
[2018-11-15 06:29] LABS: HGB - HEMOGLOBIN 6.3 g/dL (12.0-16.0)
[2018-11-15 06:56] LABS: PLATELET ESTIMATE, MANUAL DECREASED (<130,000) (NORMAL); PLATELET MORPHOLOGY NORMAL APPEARANCE (NORMAL)
[2018-11-15 07:13] LABS: HGB - HEMOGLOBIN 6.6 g/dL (12.0-16.0)
[2018-11-15] MEDS ORDERED: SODIUM CHLORIDE 0.9% 50 ML IV ONE (08:21)
[2018-11-15] MEDS: ENOXAPARIN 40 MG/0.4 ML SYRINGE SUBQ SCH (08:31)
[2018-11-15] MEDS: ASPIRIN 325 MG TABLET PO SCH ×2 (08:32→16:43)
[2018-11-15] MEDS: CALCIUM CITRATE 250 MG TABLET PO SCH (08:33)
[2018-11-15] MEDS: POLYETHYLENE GLYCOL 3350 17 GM PACKET PO SCH (08:33)
[2018-11-15] MEDS ORDERED: CALCIUM GLUCONATE 1,000 MG in SODIUM CHLORIDE 0.9% 50 ML IV ONE (09:00)
--- NOTE | 2018-11-15 09:05 | PROVIDER PROGRESS NOTE ---
Subjective - Prog Note Date Prog Note Date: 11/15/18 - Subjective Pt reports feeling: Improved Subjective: pt report she felt more tired than before. Pt's HGB is down to 6.3. she report her hip pain was some better. pt denies chest pain, SOB. Current Medications - Current Medications Current Medications: Active Medications Acetaminophen (Tylenol) 650 mg PO Q4HR PRN PRN Reason: Pain 1 to 4 Last Admin: 11/14/18 12:59 Dose: 650 mg Acetaminophen (Tylenol) 650 - 975 mg PO Q4HR PRN PRN Reason: PAIN Aspirin (Pia) 325 mg PO BIDWM [facility] Last Admin: 11/15/18 08:32 Dose: 325 mg Calcium Citrate () 250 mg PO DAILY [facility] Last Admin: 11/15/18 08:33 Dose: 250 mg Docusate Sodium (Colace 100mg Capsule) 100 mg PO BID PRN PRN Reason: Constipation Enoxaparin Sodium (Lovenox) 40 mg SUBQ DAILY [facility] Last Admin: 11/15/18 08:31 Dose: 40 mg Acetaminophen (Ofirmev) 100 mls @ 400 mls/hr IV Q6HR PRN PRN Reason: PAIN Sodium Chloride (Normal Saline 0.45%) 1,000 mls @ 83.333 mls/hr IV .Q12H [facility] Last Infusion: 11/15/18 08:01 Dose: 0 mls/hr Calcium Gluconate 1,000 mg/ (Sodium Chloride) 60 mls @ 60 mls/hr IV ONCE ONE Stop: 11/15/18 09:59 Morphine Sulfate (Morphine (Carpuject)) 2 mg IVP Q2HR PRN PRN Reason: Pain 8 to 10 Ondansetron HCl (Zofran Inj) 4 mg IVP Q6HR PRN PRN Reason: Nausea / Vomiting Ondansetron HCl (Zofran Odt) 4 mg TL Q6HR PRN PRN Reason: Nausea / Vomiting Oxycodone HCl (Roxicodone) 5 mg PO Q4HR PRN PRN Reason: Pain 5 to 7 Polyethylene Glycol (Miralax) 17 gm PO DAILY [facility] Last Admin: 11/15/18 08:33 Dose: 17 gm Prochlorperazine Edisylate (Compazine Inj) 10 mg IVP Q6HR PRN PRN Reason: Nausea / Vomiting Sodium Chloride (Normal Saline Flush 0.9%) 10 ml IVP PRN PRN PRN Reason: NEEDED PER PROVIDER ORDERS Sodium Chloride (Normal Saline Flush 0.9%) 10 ml IVP 0100,0900,1700 GIL[facility] Last Admin: 11/15/18 08:33 Dose: Not Given No Known Home Medications 04/23/16 Objective - Vital Signs/Intake & Output Reviewed Vital Signs: Yes Vital Signs: Vital Signs x48h Temp Pulse Resp BP Pulse Ox 11/15/18 07:55 36.8 C 79 16 116/45 L 98 11/15/18 05:00 37 C 85 16 102/46 L 99 Intake & Output: Intake & Output 11/12/18 11/13/18 11/14/18 11/15/18 23:59 23:59 23:59 23:59 Intake Total 0 2060.000 1706.978 Output Total 425 150 Balance 0 5412.353 2089.978 - Objective General Appearance: positive: No acute distress, Alert. negative: Lethargic Eyes Bilateral: positive: Normal inspection, PERRL, No lid inflammation, Conjunctivae nml ENT: positive: ENT inspection nml, Pharynx nml, No signs of dehydration. negative: Purulent nasal drainage, Pharyngeal erythema, Oral lesions Neck: positive: Nml inspection, Thyroid nml, No JVD, Trachea midline. negative: Thyromegaly, Lymphadenopathy (R), Lymphadenopathy (L), Stiff neck, Swelling/bruising, Tracheal deviation Respiratory: positive: Chest non-tender, No respiratory distress, Breath sounds nml. negative: Wheezes, Rales, Rhonchi Cardiovascular: positive: Regular rate & rhythm, No murmur, No gallop. negative: Irregularly irregular, Extrasystoles, Tachycardia, Bradycardia, JVD present, Systolic murmur, Diastolic murmur Peripheral Pulses: 2+ Radial (R), 2+ Radial (L), 2+ Dorsalis pedis (R), 2+ Dorsalis pedis (L) Abdomen: positive: Non-tender, No organomegaly, Nml bowel sounds, No distention. negative: Tenderness, Guarding, Rebound Back: positive: Nml inspection. negative: CVA tenderness (R), CVA tenderness (L) Skin: positive: Color nml, No rash, Warm, Dry. negative: Cyanosis, Diaphoresis, Pallor Extremities: positive: Non-tender, Nml appearance. negative: Calf tenderness, Joint swelling, Basil's sign/cords Neurologic/Psychiatric: positive: Oriented x3, Sensation nml, Mood/affect nml. negative: Weakness, Sensory loss, Facial droop, Slurred/abnml speech, Depressed mood/affect - Lab Results Fish Bones: 11/15/18 06:55 11/15/18 05:35 Other Labs: Lab Results x24hrs 11/15/18 11/15/18 11/15/18 Range/Units 06:55 05:35 05:35 WBC 6.9 (4.8-10.8) x10^3/uL RBC 1.95 L (4.20-5.40) 10^6/uL Hgb 6.6 L* 6.3 L* (12.0-16.0) g/dL Hct 20.4 L 19.7 L* (37.0-47.0) % MCV 101.0 H (81.0-99.0) fL MCH 32.3 H (27.0-31.0) pg MCHC 32.0 (32.0-36.0) g/dL RDW 13.6 (12.0-15.0) % Plt Count 125 L (130-450) 10^3/uL MPV 10.6 (7.9-10.8) fL Neut # (Auto) 4.4 (1.5-6.6) 10^3/uL Lymph # (Auto) 1.5 (1.5-3.5) 10^3/uL [place] # (Auto) 1.0 (0.0-1.0) 10^3/uL Eos # (Auto) 0.0 (0.0-0.7) 10^3/uL Baso # (Auto) 0.0 (0.0-0.1) 10^3/uL Absolute Nucleated RBC 0.00 x10^3/uL Nucleated RBC % 0.0 /100WBC Manual Slide Review Indicated WBC Morphology NORMAL APPEARANCE (NORMAL) Platelet Estimate DECREASED (<130,000) (NORMAL) Platelet Morphology NORMAL APPEARANCE (NORMAL) RBC Morph Micro Appear 1+ HYPOCHROMASIA (NORMAL) PT (9.9-12.6) secs INR (0.8-1.2) Sodium 144 (135-145) mmol/L Potassium 3.6 (3.5-5.0) mmol/L Chloride 112 H (101-111) mmol/L Carbon Dioxide 22 (21-32) mmol/L Anion Gap 10.0 (6-13) BUN 13 (6-20) mg/dL Creatinine 0.7 (0.4-1.0) mg/dL Estimated GFR (MDRD) 80 L (>89) Glucose 106 H (70-100) mg/dL Calcium 7.4 L (8.5-10.3) mg/dL Total Bilirubin 0.5 (0.2-1.0) mg/dL AST 22 (10-42) IU/L ALT 11 (10-60) IU/L Alkaline Phosphatase 32 L (42-121) IU/L Total Protein 4.4 L (6.7-8.2) g/dL Albumin 2.4 L (3.2-5.5) g/dL Globulin 2.0 L (2.1-4.2) g/dL Albumin/Globulin Ratio 1.2 (1.0-2.2) Blood Type Blood Type Recheck Antibody Screen Crossmatch IS Only 11/15/18 11/14/18 11/13/18 Range/Units 05:05 14:45 17:27 WBC (4.8-10.8) x10^3/uL RBC (4.20-5.40) 10^6/uL Hgb (12.0-16.0) g/dL Hct (37.0-47.0) % MCV (81.0-99.0) fL MCH (27.0-31.0) pg MCHC (32.0-36.0) g/dL RDW (12.0-15.0) % Plt Count (130-450) 10^3/uL MPV (7.9-10.8) fL Neut # (Auto) (1.5-6.6) 10^3/uL Lymph # (Auto) (1.5-3.5) 10^3/uL [place] # (Auto) (0.0-1.0) 10^3/uL Eos # (Auto) (0.0-0.7) 10^3/uL Baso # (Auto) (0.0-0.1) 10^3/uL Absolute Nucleated RBC x10^3/uL Nucleated RBC % /100WBC Manual Slide Review WBC Morphology (NORMAL) Platelet Estimate (NORMAL) Platelet Morphology (NORMAL) RBC Morph Micro Appear (NORMAL) PT 12.9 H (9.9-12.6) secs INR 1.2 (0.8-1.2) Sodium (135-145) mmol/L Potassium (3.5-5.0) mmol/L Chloride (101-111) mmol/L Carbon Dioxide (21-32) mmol/L Anion Gap (6-13) BUN (6-20) mg/dL Creatinine (0.4-1.0) mg/dL Estimated GFR (MDRD) (>89) Glucose (70-100) mg/dL Calcium (8.5-10.3) mg/dL Total Bilirubin (0.2-1.0) mg/dL AST (10-42) IU/L ALT (10-60) IU/L Alkaline Phosphatase (42-121) IU/L Total Protein (6.7-8.2) g/dL Albumin (3.2-5.5) g/dL Globulin (2.1-4.2) g/dL Albumin/Globulin Ratio (1.0-2.2) Blood Type O POSITIVE Blood Type Recheck O POSITIVE Antibody Screen NEGATIVE Crossmatch IS Only See Detail ABX Reporting Has patient been on IV antibiotics over the past 48 hours?: No Sepsis Event Note (H) - Evaluation Current Stage of Sepsis: Ruled out Assessment/Plan - Problem List (1) Intertrochanteric fracture of right hip Impression: 11/15 status post surgery day one, pt feel pain is better. continue PT/OT continue pain control 11/14 pt is status post of surgery on today morning. will followup orthopedics surgeon consult, DVT prophylaxis per surgeon continue PT/OT continue pain control consult with social work for d/c plan pt had simple fall, she report pain when she move her right leg. Xray reveals right hip fracture. consult with orthopedics, will followup NPO with IVF of NS pain control Pt has no medical history. Revised Cardiac Risk Index for Pre-Operative Risk indicate 3.9%, low risk. Qualifiers: Encounter type: initial encounter Fracture type: closed Fracture alignment: displaced Qualified Code(s): S72.141A - Displaced intertrochanteric fracture of right femur, initial encounter for closed fracture (2) anemia pt's HGB is down to 6.3. pt denies GI bleed. pt had hip repair on yesterday. It is likely from acute blood loss. pt felt tired and no much energy. plan two unit of blood transfusion per hospital policy continue lab monitor (3) Fall Conclusion/Plan: 11/14 continue fall precaution, continue PT/OT evaluation and treatment, followup osteoporosis protocol pt had a simple fall per pt report. pt denies loss of consciousness, denies pre- syncope/syncope. pt has no cardiac history. fall precaution followup surgery, PT/OT evaluation and treatment for pt (4) Left bundle branch block (LBBB) Conclusion/Plan: 11/15 pt denies chest pain, palpitation. ECHO is unremarkable. 11/14, pt's ECHO is unremarkable. pt might be one of asymptomatic and heart structure normal individual with LBBB pt's EKG reveals LBBB. pt denies palpitation, pre-syncope/syncope, chest pain. pt has no cardiac history. we will check ECHO, followup (5) Do not intubate, cardiopulmonary resuscitation (CPR)-only code status Conclusion/Plan: pt request DNR Qualifiers: Encounter type: initial encounter Fracture type: closed Fracture alignment: displaced Qualified Code(s): S72.141A - Displaced intertrochanteric fracture of right femur, initial encounter for closed fracture
[2018-11-15] MEDS ORDERED: SODIUM CHLORIDE 0.9% 500 ML ONE ×2 (09:11→13:51)
[2018-11-15] MEDS: FAMOTIDINE 20 MG TABLET PO SCH (11:59)
[2018-11-15 13:42] LABS: TROPONIN I < 0.04 ng/mL (<0.49)
[2018-11-15 19:25] LABS: BASOPHILS % (AUTO) 0.2 %; EOSINOPHILS % (AUTO) 0.2 %; HGB - HEMOGLOBIN 9.7 g/dL (12.0-16.0); LYMPHOCYTES % (AUTO) 11.7 %; MEAN CORPUSCULAR HEMOGLOBIN 31.5 pg (27.0-31.0); MEAN CORPUSCULAR HGB CONC 34.4 g/dL (32.0-36.0); MEAN CORPUSCULAR VOLUME 91.6 fL (81.0-99.0); MEAN PLATELET VOLUME 10.6 fL (7.9-10.8); MONOCYTES # (AUTO) 1.2 10^3/uL (0.0-1.0); MONOCYTES % (AUTO) 14.5 %; NEUTROPHILS % (AUTO) 72.5 %; PLT - PLATELET COUNT 101 10^3/uL (130-450); RED BLOOD COUNT 3.08 10^6/uL (4.20-5.40); RED CELL DISTRIBUTION WIDTH 17.2 % (12.0-15.0); WHITE BLOOD COUNT 8.2 x10^3/uL (4.8-10.8)
--- NOTE | 2018-11-15 22:37 | PROVIDER PROGRESS NOTE ---
Subjective - Prog Note Date Prog Note Date: 11/15/18 Prog Note Time: 08:45 - Subjective Pt reports feeling: Improved Subjective: says feeling ok. reports hip/thigh a bit sore, but not if doesn't move, denies lh/dz/sob/cp Objective - Vital Signs/Intake & Output Vital Signs: Vital Signs x48h Temp Pulse Pulse Resp BP BP BP 11/15/18 20:14 37.0 C 83 16 110/48 L 11/15/18 17:50 37.5 C 81 16 111/43 L 11/15/18 15:51 37.4 C 83 16 123/48 L 11/15/18 15:36 37.6 C H 83 12 115/43 L 11/15/18 14:49 37.4 C 85 12 98/28 L Pulse Ox 11/15/18 20:14 95 11/15/18 17:50 11/15/18 15:51 98 11/15/18 15:36 11/15/18 14:49 Intake & Output: Intake & Output 11/12/18 11/13/18 11/14/18 11/15/18 23:59 23:59 23:59 23:59 Intake Total 0 2060.000 3121.978 Output Total 425 600 Balance 0 4693.313 1205.978 - Lab Results Fish Bones: 11/15/18 19:08 11/15/18 05:35 Other Labs: Lab Results x24hrs 11/15/18 11/15/18 11/15/18 Range/Units 19:08 13:21 06:55 WBC 8.2 (4.8-10.8) x10^3/uL RBC 3.08 L (4.20-5.40) 10^6/uL Hgb 9.7 L 6.6 L* (12.0-16.0) g/dL Hct 28.2 L 20.4 L (37.0-47.0) % MCV 91.6 (81.0-99.0) fL MCH 31.5 H (27.0-31.0) pg MCHC 34.4 (32.0-36.0) g/dL RDW 17.2 H (12.0-15.0) % Plt Count 101 L (130-450) 10^3/uL MPV 10.6 (7.9-10.8) fL Neut # (Auto) 6.0 (1.5-6.6) 10^3/uL Lymph # (Auto) 1.0 L (1.5-3.5) 10^3/uL [place] # (Auto) 1.2 H (0.0-1.0) 10^3/uL Eos # (Auto) 0.0 (0.0-0.7) 10^3/uL Baso # (Auto) 0.0 (0.0-0.1) 10^3/uL Absolute Nucleated RBC 0.00 x10^3/uL Nucleated RBC % 0.0 /100WBC Manual Slide Review WBC Morphology (NORMAL) Platelet Estimate (NORMAL) Platelet Morphology (NORMAL) RBC Morph Micro Appear (NORMAL) Sodium (135-145) mmol/L Potassium (3.5-5.0) mmol/L Chloride (101-111) mmol/L Carbon Dioxide (21-32) mmol/L Anion Gap (6-13) BUN (6-20) mg/dL Creatinine (0.4-1.0) mg/dL Estimated GFR (MDRD) (>89) Glucose (70-100) mg/dL Calcium (8.5-10.3) mg/dL Total Bilirubin (0.2-1.0) mg/dL AST (10-42) IU/L ALT (10-60) IU/L Alkaline Phosphatase (42-121) IU/L Troponin I < 0.04 (<0.49) ng/mL Troponin I High Sens 8.2 (2.3-14.8) pg/mL Total Protein (6.7-8.2) g/dL Albumin (3.2-5.5) g/dL Globulin (2.1-4.2) g/dL Albumin/Globulin Ratio (1.0-2.2) Blood Type Blood Type Recheck Antibody Screen Crossmatch IS Only 11/15/18 11/15/18 11/15/18 Range/Units 05:35 05:35 05:05 WBC 6.9 (4.8-10.8) x10^3/uL RBC 1.95 L (4.20-5.40) 10^6/uL Hgb 6.3 L* (12.0-16.0) g/dL Hct 19.7 L* (37.0-47.0) % MCV 101.0 H (81.0-99.0) fL MCH 32.3 H (27.0-31.0) pg MCHC 32.0 (32.0-36.0) g/dL RDW 13.6 (12.0-15.0) % Plt Count 125 L (130-450) 10^3/uL MPV 10.6 (7.9-10.8) fL Neut # (Auto) 4.4 (1.5-6.6) 10^3/uL Lymph # (Auto) 1.5 (1.5-3.5) 10^3/uL [place] # (Auto) 1.0 (0.0-1.0) 10^3/uL Eos # (Auto) 0.0 (0.0-0.7) 10^3/uL Baso # (Auto) 0.0 (0.0-0.1) 10^3/uL Absolute Nucleated RBC 0.00 x10^3/uL Nucleated RBC % 0.0 /100WBC Manual Slide Review Indicated WBC Morphology NORMAL APPEARANCE (NORMAL) Platelet Estimate DECREASED (<130,000) (NORMAL) Platelet Morphology NORMAL APPEARANCE (NORMAL) RBC Morph Micro Appear 1+ HYPOCHROMASIA (NORMAL) Sodium 144 (135-145) mmol/L Potassium 3.6 (3.5-5.0) mmol/L Chloride 112 H (101-111) mmol/L Carbon Dioxide 22 (21-32) mmol/L Anion Gap 10.0 (6-13) BUN 13 (6-20) mg/dL Creatinine 0.7 (0.4-1.0) mg/dL Estimated GFR (MDRD) 80 L (>89) Glucose 106 H (70-100) mg/dL Calcium 7.4 L (8.5-10.3) mg/dL Total Bilirubin 0.5 (0.2-1.0) mg/dL AST 22 (10-42) IU/L ALT 11 (10-60) IU/L Alkaline Phosphatase 32 L (42-121) IU/L Troponin I (<0.49) ng/mL Troponin I High Sens (2.3-14.8) pg/mL Total Protein 4.4 L (6.7-8.2) g/dL Albumin 2.4 L (3.2-5.5) g/dL Globulin 2.0 L (2.1-4.2) g/dL Albumin/Globulin Ratio 1.2 (1.0-2.2) Blood Type Blood Type Recheck O POSITIVE Antibody Screen Crossmatch IS Only 11/13/18 Range/Units 17:27 WBC (4.8-10.8) x10^3/uL RBC (4.20-5.40) 10^6/uL Hgb (12.0-16.0) g/dL Hct (37.0-47.0) % MCV (81.0-99.0) fL MCH (27.0-31.0) pg MCHC (32.0-36.0) g/dL RDW (12.0-15.0) % Plt Count (130-450) 10^3/uL MPV (7.9-10.8) fL Neut # (Auto) (1.5-6.6) 10^3/uL Lymph # (Auto) (1.5-3.5) 10^3/uL [place] # (Auto) (0.0-1.0) 10^3/uL Eos # (Auto) (0.0-0.7) 10^3/uL Baso # (Auto) (0.0-0.1) 10^3/uL Absolute Nucleated RBC x10^3/uL Nucleated RBC % /100WBC Manual Slide Review WBC Morphology (NORMAL) Platelet Estimate (NORMAL) Platelet Morphology (NORMAL) RBC Morph Micro Appear (NORMAL) Sodium (135-145) mmol/L Potassium (3.5-5.0) mmol/L Chloride (101-111) mmol/L Carbon Dioxide (21-32) mmol/L Anion Gap (6-13) BUN (6-20) mg/dL Creatinine (0.4-1.0) mg/dL Estimated GFR (MDRD) (>89) Glucose (70-100) mg/dL Calcium (8.5-10.3) mg/dL Total Bilirubin (0.2-1.0) mg/dL AST (10-42) IU/L ALT (10-60) IU/L Alkaline Phosphatase (42-121) IU/L Troponin I (<0.49) ng/mL Troponin I High Sens (2.3-14.8) pg/mL Total Protein (6.7-8.2) g/dL Albumin (3.2-5.5) g/dL Globulin (2.1-4.2) g/dL Albumin/Globulin Ratio (1.0-2.2) Blood Type O POSITIVE Blood Type Recheck Antibody Screen NEGATIVE Crossmatch IS Only See Detail - Other Results/Comments Other Results/Comments: awake, communicative/conversational. rle nv unchanged. scds in place. calves s/nt. dressings intact/ minimal blood stain/ dry. no surrounding erythema Sepsis Event Note (H) - Evaluation Current Stage of Sepsis: Ruled out Assessment/Plan - Problem List (1) Intertrochanteric fracture of right hip Impression: pt ok POD 1 s/p right femur ceph med nail. appreciate events/Hospitalist mgt. pt receiving prbcs. cont med mgt. if ok with med: IS q1hr when awake. oob with pt. sw. ot. cont asa/scd. analgesics. plan for dc to snf. leave dressing intact. ffwb rle with walker and assist. Qualifiers: Encounter type: initial encounter Fracture type: closed Fracture alignment: displaced Qualified Code(s): S72.141A - Displaced intertrochanteric fracture of right femur, initial encounter for closed fracture
[2018-11-16] MEDS: ACETAMINOPHEN 325 MG TABLET PO PRN (00:12)
[2018-11-16] MEDS: SODIUM CHLORIDE 0.45% 1,000 ML IV SCH (00:16)
[2018-11-16] MEDS: SODIUM CHLORIDE FLUSH 0.9% 10 ML SYRINGE IVP SCH ×3 (03:02→16:23)
[2018-11-16 05:43] LABS: BASOPHILS % (AUTO) 0.4 %; EOSINOPHILS # (AUTO) 0.1 10^3/uL (0.0-0.7); EOSINOPHILS % (AUTO) 0.9 %; HGB - HEMOGLOBIN 9.3 g/dL (12.0-16.0); LYMPHOCYTES % (AUTO) 23.8 %; MEAN CORPUSCULAR HEMOGLOBIN 30.3 pg (27.0-31.0); MEAN CORPUSCULAR HGB CONC 33.2 g/dL (32.0-36.0); MEAN CORPUSCULAR VOLUME 91.2 fL (81.0-99.0); MEAN PLATELET VOLUME 11.1 fL (7.9-10.8); MONOCYTES # (AUTO) 1.1 10^3/uL (0.0-1.0); NEUTROPHILS % (AUTO) 61.2 %; PLT - PLATELET COUNT 107 10^3/uL (130-450); RED BLOOD COUNT 3.07 10^6/uL (4.20-5.40); RED CELL DISTRIBUTION WIDTH 17.6 % (12.0-15.0); WHITE BLOOD COUNT 8.2 x10^3/uL (4.8-10.8)
[2018-11-16 05:56] LABS: ALBUMIN 2.3 g/dL (3.2-5.5); BILIRUBIN,TOTAL 1.1 mg/dL (0.2-1.0); CALCIUM 7.4 mg/dL (8.5-10.3); CREATININE 0.7 mg/dL (0.4-1.0); TOTAL PROTEIN 4.5 g/dL (6.7-8.2)
[2018-11-16] MEDS ORDERED: POTASSIUM CHLORIDE 20 MEQ TABLET PO ONE ×2 (06:25→07:18)
[2018-11-16] MEDS ORDERED: POTASSIUM CHLORIDE INJ 40 MEQ in SODIUM CHLORIDE 0.9% 480 ML IV ONE (06:25)
[2018-11-16] MEDS ORDERED: CALCIUM GLUCONATE 1,000 MG in SODIUM CHLORIDE 0.9% 50 ML IV ONE (07:19)
[2018-11-16 07:33] LABS: ABSOLUTE RETICS # AUTO 0.054 10^6/uL (0.020-0.110); RED BLOOD COUNT 3.01 10^6/uL (4.20-5.40)
--- NOTE | 2018-11-16 07:43 | XRAY Report ---
Reason: cough, status post of hip repair Procedure Date: 11/16/2018 Accession Number: [id number] / [id number] Procedure: XR - Chest 1 View X-Ray CPT Code: 13092 FULL RESULT: EXAM: CHEST RADIOGRAPHY EXAM DATE: 11/16/2018 07:34 AM. CLINICAL HISTORY: Cough, status post of hip repair. COMPARISON: CHEST 1 VIEW 11/13/2018 9:01 PM. TECHNIQUE: 1 view. FINDINGS: Lungs/Pleura: No focal opacities evident. No pleural effusion. No pneumothorax. Mediastinum: Heart size is normal. Aorta is mildly tortuous. Other: Gaseous distention of bowel in the upper abdomen. Degenerative changes of both shoulders. IMPRESSION: 1. No acute disease in the chest. RADIA
[2018-11-16 08:17] LABS: % IRON SATURATION 12 % (20-50); IRON 18 ug/dL (28-170); TOTAL IRON BINDING CAPACITY 154 ug/dL (250-450); TRANSFERRIN 110 mg/dL (192-382)
[2018-11-16] MEDS: ENOXAPARIN 40 MG/0.4 ML SYRINGE SUBQ SCH (08:49)
[2018-11-16] MEDS: POLYETHYLENE GLYCOL 3350 17 GM PACKET PO SCH (08:49)
[2018-11-16] MEDS: ASPIRIN 325 MG TABLET PO SCH ×2 (08:51→16:22)
[2018-11-16] MEDS: CALCIUM CITRATE 250 MG TABLET PO SCH (08:51)
[2018-11-16] MEDS: FAMOTIDINE 20 MG TABLET PO SCH (08:52)
--- NOTE | 2018-11-16 10:23 | PROVIDER PROGRESS NOTE ---
Subjective - Prog Note Date Prog Note Date: 11/16/18 - Subjective Pt reports feeling: Improved Subjective: pt report she moved into chair on yesterday with PT/nurse help. she report her pain is better controlled, and satisfy with current pain control plan. pt denies GI bleed. she report she feels better after she had blood transfusion. she denies chest pain, fever, chill. Current Medications - Current Medications Current Medications: Active Medications Acetaminophen (Tylenol) 650 mg PO Q4HR PRN PRN Reason: Pain 1 to 4 Last Admin: 11/16/18 00:12 Dose: 650 mg Acetaminophen (Tylenol) 650 - 975 mg PO Q4HR PRN PRN Reason: PAIN Aspirin (Pia) 325 mg PO BIDWM [facility] Last Admin: 11/16/18 08:51 Dose: 325 mg Calcium Citrate () 250 mg PO DAILY [facility] Last Admin: 11/16/18 08:51 Dose: 250 mg Cyanocobalamin (Vitamin B-12) 500 mcg PO DAILY [facility] Docusate Sodium (Colace 100mg Capsule) 100 mg PO BID PRN PRN Reason: Constipation Last Admin: 11/16/18 08:51 Dose: 100 mg Enoxaparin Sodium (Lovenox) 40 mg SUBQ DAILY [facility] Last Admin: 11/16/18 08:49 Dose: 40 mg Famotidine (Pepcid) 20 mg PO DAILY [facility] Last Admin: 11/16/18 08:52 Dose: 20 mg Ferrous Sulfate (Feosol) 325 mg PO BIDWM [facility] Acetaminophen (Ofirmev) 100 mls @ 400 mls/hr IV Q6HR PRN PRN Reason: PAIN Potassium Chloride 40 meq/ (Sodium Chloride) 500 mls @ 125 mls/hr IV ONCE ONE Stop: 11/16/18 10:24 Last Admin: 11/16/18 10:04 Dose: 125 mls/hr Morphine Sulfate (Morphine (Carpuject)) 2 mg IVP Q2HR PRN PRN Reason: Pain 8 to 10 Ondansetron HCl (Zofran Inj) 4 mg IVP Q6HR PRN PRN Reason: Nausea / Vomiting Ondansetron HCl (Zofran Odt) 4 mg TL Q6HR PRN PRN Reason: Nausea / Vomiting Oxycodone HCl (Roxicodone) 5 mg PO Q4HR PRN PRN Reason: Pain 5 to 7 Polyethylene Glycol (Miralax) 17 gm PO DAILY [facility] Last Admin: 11/16/18 08:49 Dose: 17 gm Prochlorperazine Edisylate (Compazine Inj) 10 mg IVP Q6HR PRN PRN Reason: Nausea / Vomiting Sodium Chloride (Normal Saline Flush 0.9%) 10 ml IVP PRN PRN PRN Reason: NEEDED PER PROVIDER ORDERS Sodium Chloride (Normal Saline Flush 0.9%) 10 ml IVP 0100,0900,1700 [facility] Last Admin: 11/16/18 08:52 Dose: Not Given No Known Home Medications 04/23/16 Objective - Vital Signs/Intake & Output Reviewed Vital Signs: Yes Vital Signs: Vital Signs x48h Temp Pulse Resp BP Pulse Ox 11/16/18 08:39 36.6 C 79 16 127/50 L 98 11/16/18 04:50 36.3 C L 76 16 119/54 L 98 Intake & Output: Intake & Output 11/13/18 11/14/18 11/15/18 11/16/18 23:59 23:59 23:59 23:59 Intake Total 0 2060.000 3121.978 1383.022 Output Total 160 140 6102 Balance 0 5614.669 6485.978 -766.978 - Objective General Appearance: positive: No acute distress, Alert. negative: Lethargic Eyes Bilateral: positive: Normal inspection, PERRL, No lid inflammation, Conjunctivae nml ENT: positive: ENT inspection nml, Pharynx nml, No signs of dehydration. negative: Purulent nasal drainage, Pharyngeal erythema, Oral lesions Neck: positive: Nml inspection, Thyroid nml, No JVD, Trachea midline. negative: Thyromegaly, Lymphadenopathy (R), Lymphadenopathy (L), Stiff neck, Swelling/bruising, Tracheal deviation Respiratory: positive: Chest non-tender, No respiratory distress, Breath sounds nml. negative: Wheezes, Rales, Rhonchi Cardiovascular: positive: Regular rate & rhythm, No murmur, No gallop. negative: Irregularly irregular, Extrasystoles, Tachycardia, Bradycardia, JVD present, Systolic murmur, Diastolic murmur Peripheral Pulses: 2+ Radial (R), 2+ Radial (L), 2+ Dorsalis pedis (R), 2+ Dorsalis pedis (L) Abdomen: positive: Non-tender, No organomegaly, Nml bowel sounds, No distention. negative: Tenderness, Guarding, Rebound Back: positive: Nml inspection. negative: CVA tenderness (R), CVA tenderness (L) Skin: positive: Color nml, No rash, Warm, Dry. negative: Cyanosis, Diaphoresis, Pallor Extremities: positive: Non-tender. negative: Calf tenderness, Joint swelling, Basil's sign/cords Neurologic/Psychiatric: positive: Oriented x3, Sensation nml, Mood/affect nml. negative: Weakness, Sensory loss, Facial droop, Slurred/abnml speech, Depressed mood/affect - Lab Results Fish Bones: 11/16/18 04:58 11/16/18 04:58 Other Labs: Lab Results x24hrs 11/16/18 11/16/18 11/16/18 Range/Units 04:58 04:58 04:58 WBC (4.8-10.8) x10^3/uL RBC (4.20-5.40) 10^6/uL Hgb (12.0-16.0) g/dL Hct (37.0-47.0) % MCV (81.0-99.0) fL MCH (27.0-31.0) pg MCHC (32.0-36.0) g/dL RDW (12.0-15.0) % Plt Count (130-450) 10^3/uL MPV (7.9-10.8) fL Reticulocyte % (Auto) (0.5-2.3) % Neut # (Auto) (1.5-6.6) 10^3/uL Lymph # (Auto) (1.5-3.5) 10^3/uL [place] # (Auto) (0.0-1.0) 10^3/uL Eos # (Auto) (0.0-0.7) 10^3/uL Baso # (Auto) (0.0-0.1) 10^3/uL Absolute Nucleated RBC x10^3/uL Nucleated RBC % /100WBC Absolute Retic (0.020-0.110) 10^6/uL Sodium (135-145) mmol/L Potassium (3.5-5.0) mmol/L Chloride (101-111) mmol/L Carbon Dioxide (21-32) mmol/L Anion Gap (6-13) BUN (6-20) mg/dL Creatinine (0.4-1.0) mg/dL Estimated GFR (MDRD) (>89) Glucose (70-100) mg/dL Calcium (8.5-10.3) mg/dL Iron 18 L (28-170) ug/dL TIBC 154 L (250-450) ug/dL % Saturation 12 L (20-50) % Transferrin 110 L (192-382) mg/dL Ferritin 213.0 (11.0-306.8) ng/mL Total Bilirubin (0.2-1.0) mg/dL AST (10-42) IU/L ALT (10-60) IU/L Alkaline Phosphatase (42-121) IU/L Lactate Dehydrogenase 121 (91-225) IU/L Troponin I (<0.49) ng/mL Troponin I High Sens (2.3-14.8) pg/mL Total Protein (6.7-8.2) g/dL Albumin (3.2-5.5) g/dL Globulin (2.1-4.2) g/dL Albumin/Globulin Ratio (1.0-2.2) Vitamin B12 280 (180-914) pg/mL Blood Type Antibody Screen Crossmatch IS Only 11/16/18 11/16/18 11/16/18 Range/Units 04:58 04:58 04:58 WBC 8.2 (4.8-10.8) x10^3/uL RBC 3.01 L 3.07 L (4.20-5.40) 10^6/uL Hgb 9.3 L (12.0-16.0) g/dL Hct 28.0 L (37.0-47.0) % MCV 91.2 (81.0-99.0) fL MCH 30.3 (27.0-31.0) pg MCHC 33.2 (32.0-36.0) g/dL RDW 17.6 H (12.0-15.0) % Plt Count 107 L (130-450) 10^3/uL MPV 11.1 H (7.9-10.8) fL Reticulocyte % (Auto) 1.79 (0.5-2.3) % Neut # (Auto) 5.0 (1.5-6.6) 10^3/uL Lymph # (Auto) 2.0 (1.5-3.5) 10^3/uL [place] # (Auto) 1.1 H (0.0-1.0) 10^3/uL Eos # (Auto) 0.1 (0.0-0.7) 10^3/uL Baso # (Auto) 0.0 (0.0-0.1) 10^3/uL Absolute Nucleated RBC 0.00 x10^3/uL Nucleated RBC % 0.0 /100WBC Absolute Retic 0.054 (0.020-0.110) 10^6/uL Sodium 141 (135-145) mmol/L Potassium 3.0 L (3.5-5.0) mmol/L Chloride 109 (101-111) mmol/L Carbon Dioxide 24 (21-32) mmol/L Anion Gap 8.0 (6-13) BUN 10 (6-20) mg/dL Creatinine 0.7 (0.4-1.0) mg/dL Estimated GFR (MDRD) 80 L (>89) Glucose 96 (70-100) mg/dL Calcium 7.4 L (8.5-10.3) mg/dL Iron (28-170) ug/dL TIBC (250-450) ug/dL % Saturation (20-50) % Transferrin (192-382) mg/dL Ferritin (11.0-306.8) ng/mL Total Bilirubin 1.1 H (0.2-1.0) mg/dL AST 23 (10-42) IU/L ALT 11 (10-60) IU/L Alkaline Phosphatase 36 L (42-121) IU/L Lactate Dehydrogenase (91-225) IU/L Troponin I (<0.49) ng/mL Troponin I High Sens (2.3-14.8) pg/mL Total Protein 4.5 L (6.7-8.2) g/dL Albumin 2.3 L (3.2-5.5) g/dL Globulin 2.2 (2.1-4.2) g/dL Albumin/Globulin Ratio 1.0 (1.0-2.2) Vitamin B12 (180-914) pg/mL Blood Type Antibody Screen Crossmatch IS Only 11/15/18 11/15/18 11/13/18 Range/Units 19:08 13:21 17:27 WBC 8.2 (4.8-10.8) x10^3/uL RBC 3.08 L (4.20-5.40) 10^6/uL Hgb 9.7 L (12.0-16.0) g/dL Hct 28.2 L (37.0-47.0) % MCV 91.6 (81.0-99.0) fL MCH 31.5 H (27.0-31.0) pg MCHC 34.4 (32.0-36.0) g/dL RDW 17.2 H (12.0-15.0) % Plt Count 101 L (130-450) 10^3/uL MPV 10.6 (7.9-10.8) fL Reticulocyte % (Auto) (0.5-2.3) % Neut # (Auto) 6.0 (1.5-6.6) 10^3/uL Lymph # (Auto) 1.0 L (1.5-3.5) 10^3/uL [place] # (Auto) 1.2 H (0.0-1.0) 10^3/uL Eos # (Auto) 0.0 (0.0-0.7) 10^3/uL Baso # (Auto) 0.0 (0.0-0.1) 10^3/uL Absolute Nucleated RBC 0.00 x10^3/uL Nucleated RBC % 0.0 /100WBC Absolute Retic (0.020-0.110) 10^6/uL Sodium (135-145) mmol/L Potassium (3.5-5.0) mmol/L Chloride (101-111) mmol/L Carbon Dioxide (21-32) mmol/L Anion Gap (6-13) BUN (6-20) mg/dL Creatinine (0.4-1.0) mg/dL Estimated GFR (MDRD) (>89) Glucose (70-100) mg/dL Calcium (8.5-10.3) mg/dL Iron (28-170) ug/dL TIBC (250-450) ug/dL % Saturation (20-50) % Transferrin (192-382) mg/dL Ferritin (11.0-306.8) ng/mL Total Bilirubin (0.2-1.0) mg/dL AST (10-42) IU/L ALT (10-60) IU/L Alkaline Phosphatase (42-121) IU/L Lactate Dehydrogenase (91-225) IU/L Troponin I < 0.04 (<0.49) ng/mL Troponin I High Sens 8.2 (2.3-14.8) pg/mL Total Protein (6.7-8.2) g/dL Albumin (3.2-5.5) g/dL Globulin (2.1-4.2) g/dL Albumin/Globulin Ratio (1.0-2.2) Vitamin B12 (180-914) pg/mL Blood Type O POSITIVE Antibody Screen NEGATIVE Crossmatch IS Only See Detail ABX Reporting Has patient been on IV antibiotics over the past 48 hours?: No Sepsis Event Note (H) - Evaluation Current Stage of Sepsis: Ruled out Assessment/Plan - Problem List (1) Intertrochanteric fracture of right hip Impression: 11/16 S/P hip repair day 2. pt is doing well. followup orthopedics surgeon, plan d/c to SNF on tomorrow continue PT/OT continue pain control 11/15 status post surgery day one, pt feel pain is better. continue PT/OT continue pain control 11/14 pt is status post of surgery on today morning. will followup orthopedics surgeon consult, DVT prophylaxis per surgeon continue PT/OT continue pain control consult with social work for d/c plan pt had simple fall, she report pain when she move her right leg. Xray reveals right hip fracture. consult with orthopedics, will followup NPO with IVF of NS pain control Pt has no medical history. Revised Cardiac Risk Index for Pre-Operative Risk indicate 3.9%, low risk. Qualifiers: Encounter type: initial encounter Fracture type: closed Fracture alignment: displaced Qualified Code(s): S72.141A - Displaced intertrochanteric fracture of right femur, initial encounter for closed fracture (2) anemia 11/16 HGB is 9.3 after two units of blood transfusion. pt is stable, pt report she feel better. iron study reveals iron deficiency, IV of ferrous gluconate, continue iron pill continue lab and vital monitor pt's HGB is down to 6.3. pt denies GI bleed. pt had hip repair on yesterday. It is likely from acute blood loss. pt felt tired and no much energy. plan two unit of blood transfusion per hospital policy continue lab monitor (3) Fall Conclusion/Plan: 11/14 continue fall precaution, continue PT/OT evaluation and treatment, followup osteoporosis protocol pt had a simple fall per pt report. pt denies loss of consciousness, denies pre- syncope/syncope. pt has no cardiac history. fall precaution followup surgery, PT/OT evaluation and treatment for pt (4) Left bundle branch block (LBBB) Conclusion/Plan: 11/15 pt denies chest pain, palpitation. ECHO is unremarkable. 11/14, pt's ECHO is unremarkable. pt might be one of asymptomatic and heart str ucture normal individual with LBBB pt's EKG reveals LBBB. pt denies palpitation, pre-syncope/syncope, chest pain. pt has no cardiac history. we will check ECHO, followup (5) Do not intubate, cardiopulmonary resuscitation (CPR)-only code status Conclusion/Plan: pt request DNR Qualifiers: Encounter type: initial encounter Fracture type: closed Fracture alignment: displaced Qualified Code(s): S72.141A - Displaced intertrochanteric fracture of right femur, initial encounter for closed fracture Qualifiers: Encounter type: initial encounter Fracture type: closed Fracture alignment: displaced Qualified Code(s): S72.141A - Displaced intertrochanteric fracture of right femur, initial encounter for closed fracture
[2018-11-16] MEDS: CYANOCOBALAMIN 500 MCG TABLET PO SCH (12:25)
[2018-11-16] MEDS: CHOLECALCIFEROL 1,000 UNIT TABLET PO SCH (12:25)
[2018-11-16] MEDS: FERROUS SULFATE 325 MG TABLET PO SCH ×2 (12:25→16:22)
--- NOTE | 2018-11-16 12:51 | PROVIDER PROGRESS NOTE ---
Subjective - Prog Note Date Prog Note Date: 11/16/18 Prog Note Time: 10:00 - Subjective Pt reports feeling: Improved Subjective: Patient says she feels like she is doing okay and that physical therapy went well she says she is comfortable. Objective - Vital Signs/Intake & Output Vital Signs: Vital Signs x48h Temp Pulse Resp BP BP Pulse Ox 11/16/18 11:46 37.1 C 76 18 119/52 L 97 11/16/18 08:39 36.6 C 79 16 127/50 L 98 11/16/18 04:50 36.3 C L 76 16 119/54 L 98 Intake & Output: Intake & Output 11/13/18 11/14/18 11/15/18 11/16/18 23:59 23:59 23:59 23:59 Intake Total 0 2060.000 3121.978 2231.630 Output Total 020 545 6551 Balance 0 5219.834 1504.978 81.630 - Lab Results Fish Bones: 11/16/18 04:58 11/16/18 04:58 Other Labs: Lab Results x24hrs 11/16/18 11/16/18 11/16/18 Range/Units 04:58 04:58 04:58 WBC (4.8-10.8) x10^3/uL RBC (4.20-5.40) 10^6/uL Hgb (12.0-16.0) g/dL Hct (37.0-47.0) % MCV (81.0-99.0) fL MCH (27.0-31.0) pg MCHC (32.0-36.0) g/dL RDW (12.0-15.0) % Plt Count (130-450) 10^3/uL MPV (7.9-10.8) fL Reticulocyte % (Auto) (0.5-2.3) % Neut # (Auto) (1.5-6.6) 10^3/uL Lymph # (Auto) (1.5-3.5) 10^3/uL [place] # (Auto) (0.0-1.0) 10^3/uL Eos # (Auto) (0.0-0.7) 10^3/uL Baso # (Auto) (0.0-0.1) 10^3/uL Absolute Nucleated RBC x10^3/uL Nucleated RBC % /100WBC Absolute Retic (0.020-0.110) 10^6/uL Sodium (135-145) mmol/L Potassium (3.5-5.0) mmol/L Chloride (101-111) mmol/L Carbon Dioxide (21-32) mmol/L Anion Gap (6-13) BUN (6-20) mg/dL Creatinine (0.4-1.0) mg/dL Estimated GFR (MDRD) (>89) Glucose (70-100) mg/dL Calcium (8.5-10.3) mg/dL Iron 18 L (28-170) ug/dL TIBC 154 L (250-450) ug/dL % Saturation 12 L (20-50) % Transferrin 110 L (192-382) mg/dL Ferritin 213.0 (11.0-306.8) ng/mL Total Bilirubin (0.2-1.0) mg/dL AST (10-42) IU/L ALT (10-60) IU/L Alkaline Phosphatase (42-121) IU/L Lactate Dehydrogenase 121 (91-225) IU/L Troponin I (<0.49) ng/mL Troponin I High Sens (2.3-14.8) pg/mL Total Protein (6.7-8.2) g/dL Albumin (3.2-5.5) g/dL Globulin (2.1-4.2) g/dL Albumin/Globulin Ratio (1.0-2.2) Vitamin B12 280 (180-914) pg/mL Blood Type Antibody Screen Crossmatch IS Only 11/16/18 11/16/18 11/16/18 Range/Units 04:58 04:58 04:58 WBC 8.2 (4.8-10.8) x10^3/uL RBC 3.01 L 3.07 L (4.20-5.40) 10^6/uL Hgb 9.3 L (12.0-16.0) g/dL Hct 28.0 L (37.0-47.0) % MCV 91.2 (81.0-99.0) fL MCH 30.3 (27.0-31.0) pg MCHC 33.2 (32.0-36.0) g/dL RDW 17.6 H (12.0-15.0) % Plt Count 107 L (130-450) 10^3/uL MPV 11.1 H (7.9-10.8) fL Reticulocyte % (Auto) 1.79 (0.5-2.3) % Neut # (Auto) 5.0 (1.5-6.6) 10^3/uL Lymph # (Auto) 2.0 (1.5-3.5) 10^3/uL [place] # (Auto) 1.1 H (0.0-1.0) 10^3/uL Eos # (Auto) 0.1 (0.0-0.7) 10^3/uL Baso # (Auto) 0.0 (0.0-0.1) 10^3/uL Absolute Nucleated RBC 0.00 x10^3/uL Nucleated RBC % 0.0 /100WBC Absolute Retic 0.054 (0.020-0.110) 10^6/uL Sodium 141 (135-145) mmol/L Potassium 3.0 L (3.5-5.0) mmol/L Chloride 109 (101-111) mmol/L Carbon Dioxide 24 (21-32) mmol/L Anion Gap 8.0 (6-13) BUN 10 (6-20) mg/dL Creatinine 0.7 (0.4-1.0) mg/dL Estimated GFR (MDRD) 80 L (>89) Glucose 96 (70-100) mg/dL Calcium 7.4 L (8.5-10.3) mg/dL Iron (28-170) ug/dL TIBC (250-450) ug/dL % Saturation (20-50) % Transferrin (192-382) mg/dL Ferritin (11.0-306.8) ng/mL Total Bilirubin 1.1 H (0.2-1.0) mg/dL AST 23 (10-42) IU/L ALT 11 (10-60) IU/L Alkaline Phosphatase 36 L (42-121) IU/L Lactate Dehydrogenase (91-225) IU/L Troponin I (<0.49) ng/mL Troponin I High Sens (2.3-14.8) pg/mL Total Protein 4.5 L (6.7-8.2) g/dL Albumin 2.3 L (3.2-5.5) g/dL Globulin 2.2 (2.1-4.2) g/dL Albumin/Globulin Ratio 1.0 (1.0-2.2) Vitamin B12 (180-914) pg/mL Blood Type Antibody Screen Crossmatch IS Only 11/15/18 11/15/18 11/13/18 Range/Units 19:08 13:21 17:27 WBC 8.2 (4.8-10.8) x10^3/uL RBC 3.08 L (4.20-5.40) 10^6/uL Hgb 9.7 L (12.0-16.0) g/dL Hct 28.2 L (37.0-47.0) % MCV 91.6 (81.0-99.0) fL MCH 31.5 H (27.0-31.0) pg MCHC 34.4 (32.0-36.0) g/dL RDW 17.2 H (12.0-15.0) % Plt Count 101 L (130-450) 10^3/uL MPV 10.6 (7.9-10.8) fL Reticulocyte % (Auto) (0.5-2.3) % Neut # (Auto) 6.0 (1.5-6.6) 10^3/uL Lymph # (Auto) 1.0 L (1.5-3.5) 10^3/uL [place] # (Auto) 1.2 H (0.0-1.0) 10^3/uL Eos # (Auto) 0.0 (0.0-0.7) 10^3/uL Baso # (Auto) 0.0 (0.0-0.1) 10^3/uL Absolute Nucleated RBC 0.00 x10^3/uL Nucleated RBC % 0.0 /100WBC Absolute Retic (0.020-0.110) 10^6/uL Sodium (135-145) mmol/L Potassium (3.5-5.0) mmol/L Chloride (101-111) mmol/L Carbon Dioxide (21-32) mmol/L Anion Gap (6-13) BUN (6-20) mg/dL Creatinine (0.4-1.0) mg/dL Estimated GFR (MDRD) (>89) Glucose (70-100) mg/dL Calcium (8.5-10.3) mg/dL Iron (28-170) ug/dL TIBC (250-450) ug/dL % Saturation (20-50) % Transferrin (192-382) mg/dL Ferritin (11.0-306.8) ng/mL Total Bilirubin (0.2-1.0) mg/dL AST (10-42) IU/L ALT (10-60) IU/L Alkaline Phosphatase (42-121) IU/L Lactate Dehydrogenase (91-225) IU/L Troponin I < 0.04 (<0.49) ng/mL Troponin I High Sens 8.2 (2.3-14.8) pg/mL Total Protein (6.7-8.2) g/dL Albumin (3.2-5.5) g/dL Globulin (2.1-4.2) g/dL Albumin/Globulin Ratio (1.0-2.2) Vitamin B12 (180-914) pg/mL Blood Type O POSITIVE Antibody Screen NEGATIVE Crossmatch IS Only See Detail - Other Results/Comments Other Results/Comments: Patient 83-year-old female seen out of bed in chair just after physical therapy. She is in no acute distress. Patient's right lower extremity able to flex extend toes ankle and knee. She is able to maintain hip flexion if assisted but not able to initiate that herself. Thigh and calf soft. Right hip dressing shows minimal blood staining the distal aspect the more proximal dressing. No surrounding erythema. Thigh calf soft Sepsis Event Note (H) - Evaluation Current Stage of Sepsis: Ruled out Assessment/Plan - Problem List (1) Intertrochanteric fracture of right hip Impression: Patient doing well postoperative day #2 after right femur cephalo-medullary nail placement. I recommend continuing current treatment with foot flat weightbearing right lower extremity ambulating with assistance and assistive device as necessary. Continued plan for correction facility. Continue therapy occupational and physical. Incentive spirometer q. one hour when awake. Analgesics as necessary. Mechanical and chemical DVT prophylaxis. Recommend reinforcing proximal dressing with Tegaderm. We will continue to follow While in-house. Upon discharge patient should follow-up 10 to 14 days postop.She may follow-up sooner as needed. Qualifiers: Encounter type: initial encounter Fracture type: closed Fracture alignment: displaced Qualified Code(s): S72.141A - Displaced intertrochanteric fracture of right femur, initial encounter for closed fracture
[2018-11-16] MEDS: DOCUSATE SODIUM 250 MG CAPSULE PO SCH (16:22)
[2018-11-16] MEDS: SENNA 8.6 MG TABLET PO SCH (16:23)
[2018-11-17] MEDS: SODIUM CHLORIDE FLUSH 0.9% 10 ML SYRINGE IVP SCH ×2 (01:14→09:08)
[2018-11-17 06:04] LABS: BASOPHILS % (AUTO) 0.1 %; EOSINOPHILS # (AUTO) 0.1 10^3/uL (0.0-0.7); EOSINOPHILS % (AUTO) 1.4 %; HGB - HEMOGLOBIN 9.3 g/dL (12.0-16.0); LYMPHOCYTES # (AUTO) 1.6 10^3/uL (1.5-3.5); LYMPHOCYTES % (AUTO) 20.1 %; MEAN CORPUSCULAR HEMOGLOBIN 31.3 pg (27.0-31.0); MEAN CORPUSCULAR HGB CONC 34.2 g/dL (32.0-36.0); MEAN CORPUSCULAR VOLUME 91.6 fL (81.0-99.0); MONOCYTES # (AUTO) 0.9 10^3/uL (0.0-1.0); MONOCYTES % (AUTO) 11.2 %; NEUTROPHILS # (AUTO) 5.2 10^3/uL (1.5-6.6); NEUTROPHILS % (AUTO) 66.6 %; PLT - PLATELET COUNT 129 10^3/uL (130-450); RED BLOOD COUNT 2.97 10^6/uL (4.20-5.40); RED CELL DISTRIBUTION WIDTH 16.4 % (12.0-15.0); WHITE BLOOD COUNT 7.8 x10^3/uL (4.8-10.8)
[2018-11-17 06:21] LABS: ALBUMIN 2.4 g/dL (3.2-5.5); BILIRUBIN,TOTAL 1.3 mg/dL (0.2-1.0); CALCIUM 7.7 mg/dL (8.5-10.3); CREATININE 0.7 mg/dL (0.4-1.0); TOTAL PROTEIN 4.9 g/dL (6.7-8.2)
[2018-11-17 08:32] VITALS: BP 106/50
[2018-11-17] MEDS: POLYETHYLENE GLYCOL 3350 17 GM PACKET PO SCH (09:06)
[2018-11-17] MEDS: ENOXAPARIN 40 MG/0.4 ML SYRINGE SUBQ SCH (09:06)
[2018-11-17] MEDS: FERROUS SULFATE 325 MG TABLET PO SCH (09:07)
[2018-11-17] MEDS: ASPIRIN 325 MG TABLET PO SCH (09:08)
[2018-11-17] MEDS: CALCIUM CITRATE 250 MG TABLET PO SCH (09:08)
[2018-11-17] MEDS: CYANOCOBALAMIN 500 MCG TABLET PO SCH (09:08)
[2018-11-17] MEDS: CHOLECALCIFEROL 1,000 UNIT TABLET PO SCH (09:08)
[2018-11-17] MEDS: FAMOTIDINE 20 MG TABLET PO SCH (09:08)
[2018-11-17] MEDS: DOCUSATE SODIUM 250 MG CAPSULE PO SCH (09:09)
[2018-11-17] MEDS: SENNA 8.6 MG TABLET PO SCH (09:09)
--- NOTE | 2018-11-17 09:13 | Discharge Plan ---
"Discharge Plan for SNF / [facility] - Discharge Plan And Transition Orders Problem Reviewed?: Yes Disposition: 03 [facility] DC/Xfer Allergies and Adverse Reactions: Allergies Allergy/AdvReac Type Severity Reaction Status Date / Time Penicillins Allergy Hives Verified 11/13/18 16:22 Health Concerns: status post care of right hip repair, anemia, LBBB Plan of Treatment: pt is discharged to SNF care and continue PT/OT, followup orthopedics office in 10-14 days or as needed, with Aspirin as DVT prophylaxis HGB is stable now, iron deficiency anemia with acute surgery blood loss, iron is prescribed for pt Pt was found to have LBBB, she is stable in hospital. ECHO reveals unremarkable. followup infantry assaultman as needed Care Goals: stabilization, hip repair and fall prevention Assessment: assessment as the above - SNF / [facility] Transition Orders Admit to (Facility): [facility] Under the care of (Name): Health provider of [facility] Discharge Diagnosis: fall, status post of right hip fracture repair, anemia, LBBB Medicare Certification Statement: I certify that Post Hospital usp care is medically necessary on a continuing basis for any of the conditions for which she/he is receiving care during hospitalization. Notify PCP of admission and forward orders to primary provider for signature. Weight on admission and: Daily Call PCP immediately if weight increases by: 2 kg Other Notification Orders: Call PCP immediately if patient develops dyspnea, chest pain/tightness or edema. House Bowel Program: Yes Additional Bowel Program Orders: If no BM after 2 days, nurse may give M.O.M. 30ml PO PRN and/or ducolax Supp 1 OK and/or WILLOW 250mg P.O., and/or senna 1-2 tabs PO. On day 3 nurse may give repeat above order until residents constipation is resolved. Annual Influenza Vaccine (between Dec 20 and July 19): Yes Two-step PPD per [facility] [phone] or approved exception documents: Yes Treatments & Other Orders: pt may followup health provider of [facility] when she is arrival, may followup orthopedics in 10-14 days for S/P, may have CBC in one week to check HGB/HCT Oxygen Orders: PRN Medication Orders: PLEASE REFER TO THE DISCHARGE MEDICATION LIST. Insulin Orders?: No - Medications New Prescriptions: Acetaminophen [Tylenol] 650 mg PO Q4HR PRN #20 tablet PRN Reason: Pain 1 to 4 oxyCODONE [Roxicodone] 5 mg PO Q4HR PRN #10 tablet PRN Reason: Pain 5 to 7 Alendronate [Fosamax] 70 mg PO Q7D #1 tablet Aspirin [Pia] 325 mg PO BIDWM #20 tablet Calcium Carbonate/Vitamin D3 [Calcium 250-Vit D3 125 Tablet] 1 each PO DAILY #10 tablet Ferrous Sulfate 325 mg PO DAILY #15 tablet - Diet Type: Geriatric Texture: Regular Liquids: Thin May have monthly special meal: Yes - Therapies | Activity Therapy: Evaluation | Treat if indicated: PT, OT Rehabilitation Potential: Maximize functional status Activity: Activity as Tolerated Additional Instructions: pt may followup health provider of [place] at [facility] when she is arrival, may followup orthopedics in 10-14 days for S/P, may have CBC in one week to check HGB/HCT"
--- NOTE | 2018-11-17 09:34 | DISCHARGE SUMMARY ---
"Discharge Summary Discharge Date: 11/17/18 Discharging Provider: BRYANT Discharge Disposition: 03 SNF DC/Xfer Discharge Facility Name: [facility] - DIAGNOSES Admission Diagnoses: (1) Intertrochanteric fracture of right hip (2) Fall (3) Left bundle branch block (LBBB) Discharge Diagnoses with Status of Each Condition: (1) Intertrochanteric fracture of right hip stable and improved (2) Fall stable (3) Left bundle branch block (LBBB) stable (4) anemia stable and improved - HPI History of Present Illness: is a 83-yrs-old female without significant medical history, who present ER complain of right hip pain. Pt report, when she turned on the right side while she was doing garden work, she had simply fell. She denies loss of consciousness, pre-syncope or syncope, palpitation, chest pain, shortness of breath. she denies other injury. Pt denies medical history, and denies any home medications she takes now. Xray of hip reveals acute comminuted right proximal femur intertrochanteric fracture. EKG reveals left bundle branch block. Pt is hemodynamic stable. Orthopedics was consulted and called, and planned to have surgery hip repair tonight. - CONSULTS | PROCEDURES Consultations: Dr. Rosa Procedures: right femur open reduction internal fixation/cephalo-medullary nail placement - HOSPITAL COURSE Hospital Course: (1) Intertrochanteric fracture of right hip pt had right femur open reduction internal fixation/cephalo-medullary nail placement procedure done by Dr. rosa. Pt will continue PT/OT in SNF. Aspirin is prescribed for DVT prophylaxis (2) Fall continue PT/OT in SNF for strength pt is prescribed Calcium/D3, and Fosmax (3) Left bundle branch block (LBBB) pt is stable in hospital. ECHO reveals unremarkable, without structure significant abnormality (4) anemia it is likely from acute blood loss from surgery. pt also has iron deficiency. pt is prescribed iron pill. - ALLERGIES Allergies/Adverse Reactions: Allergies Allergy/AdvReac Type Severity Reaction Status Date / Time Penicillins Allergy Hives Verified 11/13/18 16:22 - MEDICATIONS Home Medications: Ambulatory Orders Medication Instructions Recorded Confirmed Acetaminophen [Tylenol] 650 mg PO Q4HR PRN #20 tablet 11/17/18 Alendronate [Fosamax] 70 mg PO Q7D #1 tablet 11/17/18 Aspirin [Pia] 325 mg PO BIDWM #20 tablet 11/17/18 Calcium Carbonate/Vitamin D3 1 each PO DAILY #10 tablet 11/17/18 [Calcium 250-Vit D3 125 Tablet] Ferrous Sulfate 325 mg PO DAILY #15 tablet 11/17/18 oxyCODONE [Roxicodone] 5 mg PO Q4H PRN #10 tablet 11/17/18 - PHYSICAL EXAM AT DISCHARGE General Appearance: positive: No acute distress, Alert. negative: Lethargic Eyes Bilateral: positive: Normal inspection, PERRL, No lid inflammation, Conjunctivae nml, No scleral icterus ENT: positive: ENT inspection nml, Pharynx nml, No signs of dehydration. negative: Purulent nasal drainage, Pharyngeal erythema, Oral lesions Neck: positive: Nml inspection, Thyroid nml, No JVD, Trachea midline. negative: Thyromegaly, Lymphadenopathy (R), Lymphadenopathy (L), Stiff neck, Swelling/bruising, Tracheal deviation Respiratory: positive: Chest non-tender, No respiratory distress, Breath sounds nml. negative: Wheezes, Rales, Rhonchi Cardiovascular: positive: Regular rate & rhythm, No murmur, No gallop. negative: Irregularly irregular, Extrasystoles, Tachycardia, Bradycardia, JVD present, Systolic murmur, Diastolic murmur Peripheral Pulses: positive: 2+ Abdomen: positive: Non-tender, No organomegaly, Nml bowel sounds, No distention. negative: Tenderness, Guarding, Rebound Back: positive: Nml inspection. negative: CVA tenderness (R), CVA tenderness (L) Skin: positive: Color nml, No rash, Warm, Dry. negative: Cyanosis, Diaphoresis, Pallor Extremities: positive: Non-tender, Nml appearance. negative: Calf tenderness, Joint swelling, Basil's sign/cords Neurologic/Psychiatric: positive: Oriented x3, Motor nml, Sensation nml, Mood/affect nml. negative: Weakness, Sensory loss, Facial droop, Slurred/abnml speech, Depressed mood/affect - LABS Result Diagrams: 11/17/18 05:59 11/17/18 05:59 - SEPSIS Current Stage of Sepsis: Ruled out - QUALITY (Female Hip Fx Only) Was patient sent home on osteoporosis medication?: Yes - FOLLOW UP Follow Up: pt is discharged to SNF care and continue PT/OT, followup orthopedics office in 10-14 days or as needed, with Aspirin as DVT prophylaxis HGB is stable now, iron deficiency anemia with acute surgery blood loss, iron is prescribed for pt Pt was found to have LBBB, she is stable in hospital. ECHO reveals unremarkable. followup air quality engineer as needed pt may followup health provider of [place] [facility] when she is arrival, may followup orthopedics in 10-14 days for S/P, may have CBC in one week to check HGB/HCT - TIME SPENT Time Spent in Discharge (Minutes): 50"
== END 2018-11-17 12:00 | DRG 481 ==
LOC: EDUNIT# → ED 16:11 → MS2 17:52
PROVIDERS: ADMIT Specialist; ATTEND Nurse Practitioner Gerontology
PROC: 30233N1 Transfusion of Nonautologous Red Blood Cells into Peripheral Vein, Percutaneous Approach (ICD-10-PCS; 2018-11-13)
PROC: 0QS634Z Reposition Right Upper Femur with Internal Fixation Device, Percutaneous Approach (ICD-10-PCS; principal; 2018-11-14 08:00)
DX: S72.141A Displaced intertrochanteric fracture of right femur, initial encounter for closed fracture (principal); D62 Acute posthemorrhagic anemia; I44.7 Left bundle-branch block, unspecified; M81.0 Age-related osteoporosis without current pathological fracture; Z66 Do not resuscitate; X50.1XXA Overexertion from prolonged static or awkward postures, initial encounter; Y93.H2 Activity, gardening and landscaping; Y92.007 Garden or yard of unspecified non-institutional (private) residence as the place of occurrence of the external cause; Y99.8 Other external cause status
CPT/HCPCS: 36415; 71045; 73501; 73502; 80048; 80053; 81001; 82306; 82607; 82728; 83540; 83615; 83735; 84466; 84484; 85014; 85018; 85025; 85044; 85610; 86850; 86900; 86901; 86920; 93005; 93306; 97116; 97161; 97166; 99284; 99285; A9270; J1650; J7040; J7120; P9016; 87086

== ENCOUNTER 2019-02-08 08:00 | Outpatient (CLI) | payer MEDICARE, OTHER | END 2019-02-08 23:59 | disposition home or self-care (01) | LOC: LAB.R 08:00 | PROVIDERS: ATTEND Physician Assistant Medical | DX: R41.3 Other amnesia (principal); R39.15 Urgency of urination; R35.0 Frequency of micturition | CPT/HCPCS: 81002; 87086 ==